=== PATIENT | male | born 1960 | race Caucasian/White ===

== ENCOUNTER 2024-07-11 14:26 | Inpatient (IN) | payer MEDICARE, OTHER, SELFPAY ==
--- NOTE | ~2024-07-11 | CT_ITS ---
EXAMINATION: CTA chest abdomen pelvis DATE: 07/11/2024 17:35 SERVICE COUNSELOR INDICATION: Pain across shoulders and down arms. Aortic dissection suspected clinically. TECHNIQUE: Computed tomographic angiography (CTA) of the chest was performed, along with multiple con tiguous axial images of the abdomen and pelvis with 100 mL Omnipaque-350 intravenous contrast. The do se-length product was 951.04 mGy-cm. Maximum intensity projection 3D-reconstructions of the aorta and other arteries were constructed by the technologist on a separate workstation. FINDINGS/OBSERVATIONS: PULMONARY ARTERIES: No filling defect is identified within the main or proximal pulmonary artery. The main pulmonary artery is not enlarged. THORACIC AORTA: No aneurysmal dilatation or dissection is present. The great vessels are intact LUNGS: The lungs are clear. MEDIASTINUM: No morphologically suspicious or pathologically enlarged lymph nodes are identified with in the mediastinum or bilateral axilla. BONES OF THE CHEST: No acute compression fracture. Bridging endplate osteophytes at multiple levels in the spine, consistent with diffuse idiopathic ske letal hyperostosis (DISH). HEART: The heart is of normal size, without pericardial effusion. LIVER: The liver enhances homogeneously without enlargement measuring 16 cm in longitudinal dimension. GALLBLADDER AND BILIARY SYSTEM: The gallbladder is only minimally distended, and otherwise unremarkable. PANCREAS: A 7 mm focus of decreased attenuation is identified within the proximal body of the pancrea s for which further characterization on this single phase study is limited. The remainder of the pancreas otherwise enhances homogeneously without ductal dilatation. SPLEEN: The spleen enhances homogeneously and is not enlarged measuring 8 cm in longitudinal dimension. KIDNEYS: The bilateral kidneys enhance symmetrically without hydronephrosis or renal calculi. ADRENAL GLANDS: Unremarkable. GASTROINTESTINAL TRACT: Colonic diverticulosis without surrounding inflammatory change. APPENDIX: The air-filled appendix is of normal caliber (axial series, images 170 - 183). VASCULATURE: High-grade stenosis of the celiac trunk with poststenotic dilatation. The celiac trunk demonstrates conventional anatomy. The superior mesenteric artery is widely patent, as is the inferior mesenteric artery. LYMPH NODES: No pathologically enlarged or morphologically suspicious lymph nodes within the retroperitoneum or at the root of the mesentery. PELVIC STRUCTURES: The bladder is distended, and otherwise unremarkable. The prostate gland is not enlarged. BODY WALL AND MUSCULOSKELETAL: Significant degenerative disease within the lumbosacral spine, with bridging osteophyte formation, di sc space narrowing, endplate changes and vacuum phenomena. Facet arthropathy is also noted Ankylosis of the L5/S1 disc space is also present. IMPRESSION: No aortic dissection. No pulmonary embolus. 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 Indeterminate 7 mm focus of decreased attenuation within the proximal body of the pancreas for which nonemergent follow-up either contrast-enhanced CT or MRI with pancreatic mass protocol is recommended , unless this is a known finding. 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 Remaining mesente fritz vasculature is widely patent. Reviewed, dictated and finalized at location A. ICE COUNSELOR IMPRESSION: No aortic dissection. No pulmonary embolus. 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 Indeterminate 7 mm focus of decreased attenuation within the proximal body of t he pancreas for which nonemergent follow-up either contrast-enhanced CT or MRI with pancreatic mass protocol is recommended, unless this is a known finding. High-grade stenosis of the celiac trunk is identified with poststenotic dilatat ion. Remaining mesenteric vasculature is widely patent.
--- NOTE | 2024-07-11 14:31 | ECG_ITS ---
Test Date: 2024-07-11 14:54:04 Measurements Intervals [place] Rate: 78 P: 38 FL: 177 QRS: 0 QRSD: 94 T: 55 QT: 368 QTc: 419 Interpretive Statements SINUS RHYTHM BASELINE ARTIFACT- I, II, AVR, V4-V6 NORMAL ECG No previous ECG available for comparison Electronically Signed On 07-11-2024 15:01:33 TESTER OPERATOR by Murray Hoskins D.O.
--- OUTSIDE RECORDS SUMMARY | 2024-07-11 14:36 | XMS_ITS | Clinical Summary ---
Author Organization [facility] Address [address] [place] [address] Care Team Providers Care Engineering Design Manager Name Role Phone Wilfredo Pena MD Primary Care Provider [phone] Source Comments [facility],non-owned Affiliates and Associated Physician Practices is amultiple site organization consisting of ambulatory clinics and hospital sitesin [place], [place], [place] and [place]. This disclosure is being madepursuant to the Care Everywhere program and may not contain all information available regarding this patient. Last updated 18.[facility] Allergies No known active allergies Medications Be aware that medications may not be up to date on this document. Always verify current medications with the patient. No known medications Social History Tobacco Use Types Packs/Day Years Used Date Smoking Tobacco: Never Alcohol Use Standard Drinks/Week Comments No 0 (1 standard drink = 0.6 oz pur e alcohol) Sex and Gender Information Value Date Recorded Sex Assigned at Not on file Gender Identity Not on file Sexual Orientation Not on file Last Filed Vital Signs Vital Sign Reading Time Taken Comments Blood Pressure 109/56 05/06/2015 7:21 PM PACKAGER Pulse 66 05/06/2015 7:21 PM PACKAGER Temperature 36.6 ??C (97.8 ??F) 05/06/2015 7:21 PM CS T Respiratory Rate 16 05/06/2015 7:21 PM PACKAGER Oxygen Saturation 99% 05/06/2015 7:21 PM PACKAGER Inhaled Oxygen Concentration - - Weight 88.5 kg (195 lb) 05/06/2015 7:21 PM PACKAGER Height 170.2 cm (5' 7 ) 05/06/2015 7:21 PM PACKAGER Body Mass Index 30.54 05/06/2015 7:21 PM PACKAGER Plan of Treatment Health Maintenance Due Date Last Done Comments JUSTIN (AGES 45-75) - COL ON CA SCREENING 1958 COLON MONITORING 1958 COLONOSCOPY - COLON CA SCREENING 1958 CT COLONOGRAPHY - COLON CA SCREENING 1958 Colorectal Cancer Screening 1958 FIT - COLON CA SCREENING 1958 FLEX SIG - COLON CA SCREENING 1958 LIPID TESTING 1958 HEPATITIS C SCREENING 04/22/1976 DTAP/TDAP/TD VACCINES (1 - Tdap) 1977 PNEUMOCOCCAL VACCINE 50+ (1 of 1 - PCV) 2008 ZOSTER VACCINE (1 of 2) 2008 COVID-19 VACCINE (1 - 2023-2 5 season) 2024 INFLUENZA VACCINE (#1) 2024 DEPRESSION SCREENING 06/07/2024 Respiratory Syncytial Virus (RSV) Vaccine Pt: or over 60 yrs (1 - 1-dose 75+ series) 2033 HEPATITIS B VACCINE Aged Out No longe r eligible based on patient's age to complete this topic HIB VACCINE Aged Out No longer eligi ble based on patient's age to complete this topic HPV VACCINE Aged Out No longer eligi ble based on patient's age to complete this topic MENINGOCOCCAL (Group B) VACCINE Aged Out No longer eligible based on patient's age to complete this topic MENINGOCOCCAL VACCINE Aged Out No katalina valencia eligible based on patient's age to complete this topic Care Teams Engineering Design Manager Relationship Specialty Start Date End Date Wilfredo Pena MD [address] [address] PCP - General Internal Medicine 05/06/15
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
--- OUTSIDE RECORDS SUMMARY | 2024-07-11 14:36 | XMS_ITS | Referral Summary ---
Author Organization [facility] Address [address] [place] [address] Care Team Providers Care Farm Equipment Service Technician Name Role Phone Wilfredo Pena MD Primary Care Provider [phone] Source Comments [facility],non-owned Affiliates and Associated Physician Practices is amultiple site organization consisting of ambulatory clinics and hospital sitesin [place], [place], [place] and [place]. This disclosure is being madepursuant to the Care Everywhere program and may not contain all information available regarding this patient. Last updated 18.[facility] Allergies No known active allergies Medications Be [...] Comments Blood Pressure 109/56 05/06/2015 7:21 PM KNUCKLE STRAP SEWER Pulse 66 05/06/2015 7:21 PM KNUCKLE STRAP SEWER Temperature 36.6 ??C (97.8 ??F) 05/06/2015 7:21 PM CS T Respiratory Rate 16 05/06/2015 7:21 PM KNUCKLE STRAP SEWER Oxygen Saturation 99% 05/06/2015 7:21 PM KNUCKLE STRAP SEWER Inhaled Oxygen Concentration - - Weight 88.5 kg (195 lb) 05/06/2015 7:21 PM KNUCKLE STRAP SEWER Height 170.2 cm (5' 7 ) 05/06/2015 7:21 PM KNUCKLE STRAP SEWER Body Mass Index 30.54 05/06/2015 7:21 PM KNUCKLE STRAP SEWER Plan of Treatment Not on file Care Teams Farm Equipment Service Technician Relationship Specialty Start Date End Date Wilfredo Pena MD [address] [place] [address] [address] [place] [address] PCP - General Internal Medicine 05/06/15
--- OUTSIDE RECORDS SUMMARY | 2024-07-11 14:36 | XMS_ITS | CONTINUITY OF CARE DOCUMENT ---
Author Name sophia cortes Address Unknown Organization [facility] Address [address] [place] [address] Phone [phone] Care Team Providers Care Scrap Separator Name Role Phone sophia cortes Unavailable Unavailable
--- OUTSIDE RECORDS SUMMARY | 2024-07-11 14:36 | XMS_ITS | Clinical Summary ---
Author Organization [employer] [id number] Address [address] [place] [address] Care Team Providers Care Nanotechnology Engineering Technician Name Role Phone Wilfrdeo Pena MD Primary Care Provider [phone] Allergies No known active allergies Medications ibuprofen (MOTRIN) 200 mg tablet Take 200 mg by mouth every 6 hours as needed for Pain, Mild. Active chlorzoxazone (PARAFON FORTE) 500 mg tablet Take 1 Tablet (500 mg) by mouth 4 times daily as needed for Spasm. 30 Tablet 07/07/2018 10:56 AM HEAD OF PRECISION TARGETING 07/07/2018 Active traMADol (ULTRAM) 50 mg tablet Take 1 Tablet (50 mg) by mouth every 6 hours as needed for Pain. 30 Tablet 07/07/2018 10:56 AM HEAD OF PRECISION TARGETING 07/07/2018 Active Active Problems Problem Noted Date Diagnosed Date Lumbar stenosis with neurogenic claudication 05/2018 Family History Medical History Relation Name Comments Cancer Father COPD Mother Healthy Sister Relation Name Status Comments Father Mother Sister Alive Social History Tobacco Use Types Packs/Day Years Used Date Smoking Tobacco: Never Smokeless Tobacco: Never Alcohol Use Standard Drinks/Week Comments No 0 (1 standard drink = 0.6 oz pur e alcohol) Sex and Gender Information Value Date Recorded Sex Assigned at Not on file Legal Sex Male 12:00 AM CDT Gender Identity Not on file Sexual Orientation Not on file Last Filed Vital Signs Vital Sign Reading Time Taken Comments Blood Pressure 155/88 07/07/2018 11:00 AM HEAD OF PRECISION TARGETING Pulse 74 07/07/2018 11:00 AM HEAD OF PRECISION TARGETING Temperature 36.8 ??C (98.2 ??F) 07/07/2018 1 0:22 AM HEAD OF PRECISION TARGETING Respiratory Rate 18 07/07/2018 11:0 0 AM HEAD OF PRECISION TARGETING Oxygen Saturation 100% 07/07/2018 11: 00 AM HEAD OF PRECISION TARGETING Inhaled Oxygen Concentration - - Weight 101.7 kg (224 lb 1.9 oz) 07/07/2018 6:15 AM HEAD OF PRECISION TARGETING Height 172.7 cm (5' 8 ) 07/05/2018 10:3 7 AM HEAD OF PRECISION TARGETING Body Mass Index 34.08 07/05/2018 10:37 AM HEAD OF PRECISION TARGETING Plan of Treatment Health Maintenance Due Date Last Done Comments DTAP/TDAP/TD VACCINES (1 - Tdap) 1977 COLORECTAL SCREENING 2003 Colorectal Cancer Screening 2003 FIT-DNA Q 3 years 2003 FIT/FOBT Q 1 year 2003 Flex Sig/CT Colonography Q 5 years 2003 PNEUMOCOCCAL VACCINE 65+ YEARS (1 of 1 - PCV) 04/27/20 08 ZOSTER VACCINE (1 of 2) 2008 INFLUENZA VACCINE (#1) 2024 RSV VACCINE (60+ or ) (1 - 1-dose 75+ series) 2033 Insurance [employer] BLUE ACCESS/TRUE BLUE PPO RX [employer] Express RX [employer] Express Care Teams Nanotechnology Engineering Technician Relationship Specialty Start Date End Date Wilfredo Pena MD [address] [place] [address] PCP - General Internal Medicine 03/29/18
[2024-07-11 15:21] LABS: Basophils Absolute Auto 0.1 K/mm3 (0.0-0.1); Basophils Percent Auto 0.5 % (0.2-1.2); Eosinophils Absolute Auto 0.2 K/mm3 (0-0.3); Eosinophils Percent Auto 2.2 % (0-4.4); Hematocrit 47.7 % (42.0-52.0); Hemoglobin 16.6 g/dL (14.0-18.0); Immature Granulocyte Absolute 0.03 K/mm3 (0.00-0.031); Immature Granulocyte Percent A 0.3 % (0-0.5); Lymphocytes Absolute Auto 1.88 K/mm3 (0.9-3.2); Lymphocytes Percent Auto 20.3 % (18.3-44.2); Mean Corpuscular HGB Conc 34.8 g/dl (32-36); Mean Corpuscular Hemoglobin 32.9 pg (26-34); Mean Corpuscular Volume 94.5 fl (80-100); Mean Platelet Volume 10.2 fl (7.4-10.4); Monocytes Absolute Auto 0.6 K/mm3 (0.1-0.6); Monocytes Percent Auto 6.4 % (2.6-8.5); Neutrophils Absolute Auto 6.5 K/mm3 (1.3-6.7); Neutrophils Percent Auto 70.3 % (45.5-73.1); Platelet Count Result 241 k/mm3 (150-375); Red Blood Count 5.05 M/mm3 (4.6-6.20); Red Cell Distribution Width 12.3 % (11.5-14.5); White Blood Count 9.3 K/mm3 (4.5-10.0)
--- NOTE | 2024-07-11 15:34 | ED_ITS ---
HPI - Back Pain/Injury General Chief Complaint: Extremity Problem,Nontraumatic <Rebecca Rollins APRN - Last Filed: 07/11/24 15:36> Stated Complaint: Pain across shoulders-radiating down both arms <Rebecca Rollins APRN - Last Filed: 07/11/24 15:36> Time Seen by Provider: 07/11/24 15:15 <Rebecca Rollins APRN - Last Filed: 07/11/24 15:36> Focused HPI: Patient is a 64-year-old male who presents to the ER with bilateral shoulder pain that radiates down both of his arms. He reports the pain worsens when he is laying down. Patient reports the pain started abruptly yesterday evening. He describes it as a ?dull ache but it is not muscular. Patient reports he had left arm numbness and tingling once and it was related to his statin use, he no longer takes statin. He reports he has a history of high blood pressure, diabetes, high cholesterol. Patient denies any chest pain, shortness of breath, wheezing, abdominal pain. GENERAL: Well-appearing, well-nourished, and in no acute distress. HEAD: Normocephalic, atraumatic. CHEST: Clear to auscultation. ?No respiratory distress. HEART: Regular rate and rhythm.? NEURO: ?Alert and oriented x3. Patient screened in triage and initial orders placed.? ?Additional care and disposition to be based upon?diagnostic testing and treatment. <Rebecca Rollins APRN - Last Filed: 07/11/24 15:36> History of Present Illness HPI Narrative: I agree with the HPI as above. In addition, the patient had a normal stress test one week ago, done at the NH, for which he has a report. He had excellent imaging with no changes concerning for ischemia. <Jairo Richardson MD - Last Filed: 07/11/24 23:00> Related Data Allergies/Adverse Reactions: Allergies Allergy/AdvReac Type Severity Reaction Status Date / Time No Known Allergies Allergy Mild Verified 07/11/24 14:28 <Rebecca Rollins APRN - Last Filed: 07/11/24 15:36> Review of Systems 2 Review of Systems: All systems reviewed & are unremarkable except as noted in HPI and below <Jairo Richardson MD - Last Filed: 07/11/24 23:00> PMFSH Family History Family History: Family History (Updated 07/11/24 @ 21:34 by Rodriguez Vera RN) Mother Emphysema lung Grandparent Cerebrovascular accident Father Cancer <Rebecca Rollins, HOME MAKER - Last Filed: 07/11/24 15:36> Social History Social History: Social History Smoking status: Never smoker Alcohol intake: never Substance use: never Do You Feel Safe in your Home?: Yes Lack of Transportation: No Lack of Food: Never True Current Housing: I Have Housing Concerned About Future Housing: No Difficulty Paying Gas/Electric Bills: No Difficulty Paying for Meds: No Currently Unemployed: No Education: Associate Degree Difficulty w/ Childcare or Family Care: No Spiritual care concerns: No <Rebecca Rollins, HOME MAKER - Last Filed: 07/11/24 15:36> Exam 2 Narrative: GENERAL: Well-developed, well-nourished, and in no acute distress. HEAD: Normocephalic, atraumatic. EYES: PERRLA and EOMI. NECK: Supple. No JVD CHEST: Clear to auscultation. No respiratory distress. No wheezes rales or rhonchi HEART: Regular rate and rhythm. No murmur heard. Normal peripheral pulses. ABDOMEN: Soft, nontender, nondistended, normal active bowel sounds. EXTREMITIES: Normal range of motion. No edema. SKIN: Warm, dry, no rash. NEURO: Alert and oriented x3. No focal deficit. Moving all 4 limbs spontaneously PSYCH: Normal mood and affect. <Jairo Richardson MD - Last Filed: 07/11/24 23:00> Course Course Emergency Course: 18:44 - EKG not concerning for ischemia. Initial troponin elevated at 1.18. CBC within normal limits. Chemistries demonstrate mildly elevated calcium of 10.6 but is otherwise unremarkable. Patient tested negative for COVID, RSV and influenza. The patient presents evidence of a recent unremarkable exercise stress test. For this reason, I obtained a CT angiogram to rule out dissection. No dissection was seen. Will start patient on heparin. I discussed the patient with banking center manager, Dr. Canseco. who agrees to consult. I discussed the patient with hospitalist, ANT Castrejon who accepts admission. <Jairo Richardson MD - Last Filed: 07/11/24 23:00> Vital Signs Vital signs: Vital Signs Temperature 98.0 F 07/11/24 15:38 Pulse Rate 77 07/11/24 15:38 Respiratory Rate 18 07/11/24 15:38 Blood Pressure 145/81 H 07/11/24 15:38 Oxygen Delivery Room Air 07/11/24 15:38 Temperature 97.4 F L 07/11/24 21:25 Pulse Rate 76 07/11/24 22:00 Respiratory Rate 15 07/11/24 21:25 Blood Pressure 144/78 H 07/11/24 21:25 Pulse Oximetry 100 07/11/24 21:25 Oxygen Delivery Room Air 07/11/24 16:43 <Rebecca Rollins, HOME MAKER - Last Filed: 07/11/24 15:36> Vital Signs Temperature 98.0 F 07/11/24 15:38 Pulse Rate 77 07/11/24 15:38 Respiratory Rate 18 07/11/24 15:38 Blood Pressure 145/81 H 07/11/24 15:38 Oxygen Delivery Room Air 07/11/24 15:38 Temperature 97.4 F L 07/11/24 21:25 Pulse Rate 76 07/11/24 22:00 Respiratory Rate 15 07/11/24 21:25 Blood Pressure 144/78 H 07/11/24 21:25 Pulse Oximetry 100 07/11/24 21:25 Oxygen Delivery Room Air 07/11/24 16:43 <Jairo Richardson MD - Last Filed: 07/11/24 23:00> MDM - Back Pain/Injury MDM Narrative Medical decision making narrative: Plan: Labs, imaging, EKG, troponin, pain control, reassess <Jairo Richardson MD - Last Filed: 07/11/24 23:00> Differential Diagnosis Differential diagnosis: Likely other ( ACS, dissection, pleurisy, metabolic abnormality, pneumonia, other) <Jairo Richardson MD - Last Filed: 07/11/24 23:00> Lab Data Result diagrams: 07/11/24 15:02 07/11/24 15:02 <Rebecca Rollins APRN - Last Filed: 07/11/24 15:36> Labs: Lab Results 07/11/24 07/11/24 07/11/24 Range/Units 15:02 15:20 18:18 WBC 9.3 (4.5-10.0) K/mm3 RBC 5.05 (4.6-6.20) M/mm3 Hgb 16.6 (14.0-18.0) g/dL Hct 47.7 (42.0-52.0) % MCV 94.5 (80-100) fl MCH 32.9 (26-34) pg MCHC 34.8 (32-36) g/dl RDW 12.3 (11.5-14.5) % Plt Count 241 (150-375) k/mm3 MPV 10.2 (7.4-10.4) fl Immature Gran % (Auto) 0.3 (0-0.5) % Neut % (Auto) 70.3 (45.5-73.1) % Lymph % (Auto) 20.3 (18.3-44.2) % [place] % (Auto) 6.4 (2.6-8.5) % Eos % (Auto) 2.2 (0-4.4) % Baso % (Auto) 0.5 (0.2-1.2) % Lymph # (Auto) 1.88 (0.9-3.2) K/mm3 [place] # (Auto) 0.6 (0.1-0.6) K/mm3 Eos # (Auto) 0.2 (0-0.3) K/mm3 Baso # (Auto) 0.1 (0.0-0.1) K/mm3 Abs Immat Gran (auto) 0.03 (0.00-0.031) K/mm3 Absolute Neuts (auto) 6.5 (1.3-6.7) K/mm3 Absolute Nucleated RBC 0.000 (0.0-0.012) K/mm3 Nucleated RBC % 0.0 (0.0-0.2) % Sodium 137 (137-145) mmol/L Potassium 3.7 (3.4-5.0) mmol/L Chloride 100 (98-107) mmol/L Carbon Dioxide 21 L (22-30) mmol/L Anion Gap 16 H (4-12) mmol/L BUN 18 (9-20) mg/dL Creatinine 0.87 (0.7-1.3) mg/dL Estim Creat Clear Calc 76 ml/min Estimated GFR > 60 (59 - ) Glucose 139 H (65-110) mg/dL Calcium 10.6 H (8.4-10.2) mg/dL Total Bilirubin 0.7 (0.2-1.3) mg/dL AST 34 (17-59) U/L ALT 35 (6-50) U/L Alkaline Phosphatase 69 (38-126) U/L Troponin I 1.180 H* 2.460 H* D (0.000-0.034) ng/mL Total Protein 7.0 (6.3-8.2) g/dL Albumin 4.5 (3.5-5.1) g/dL Lipase 51 (23-300) U/L Influenza A (RT-PCR) Negative (Negative) Influenza B (RT-PCR) Negative (Negative) RSV (RT-PCR) Negative (Negative) SARS-CoV-2 RNA (RT-PCR) Negative (Negative) <Rebecca Rollins, HOME MAKER - Last Filed: 07/11/24 15:36> Lab Results 07/11/24 07/11/24 07/11/24 Range/Units 15:02 15:20 18:18 WBC 9.3 (4.5-10.0) K/mm3 RBC 5.05 (4.6-6.20) M/mm3 Hgb 16.6 (14.0-18.0) g/dL Hct 47.7 (42.0-52.0) % MCV 94.5 (80-100) fl MCH 32.9 (26-34) pg MCHC 34.8 (32-36) g/dl RDW 12.3 (11.5-14.5) % Plt Count 241 (150-375) k/mm3 MPV 10.2 (7.4-10.4) fl Immature Gran % (Auto) 0.3 (0-0.5) % Neut % (Auto) 70.3 (45.5-73.1) % Lymph % (Auto) 20.3 (18.3-44.2) % [place] % (Auto) 6.4 (2.6-8.5) % Eos % (Auto) 2.2 (0-4.4) % Baso % (Auto) 0.5 (0.2-1.2) % Lymph # (Auto) 1.88 (0.9-3.2) K/mm3 [place] # (Auto) 0.6 (0.1-0.6) K/mm3 Eos # (Auto) 0.2 (0-0.3) K/mm3 Baso # (Auto) 0.1 (0.0-0.1) K/mm3 Abs Immat Gran (auto) 0.03 (0.00-0.031) K/mm3 Absolute Neuts (auto) 6.5 (1.3-6.7) K/mm3 Absolute Nucleated RBC 0.000 (0.0-0.012) K/mm3 Nucleated RBC % 0.0 (0.0-0.2) % Sodium 137 (137-145) mmol/L Potassium 3.7 (3.4-5.0) mmol/L Chloride 100 (98-107) mmol/L Carbon Dioxide 21 L (22-30) mmol/L Anion Gap 16 H (4-12) mmol/L BUN 18 (9-20) mg/dL Creatinine 0.87 (0.7-1.3) mg/dL Estim Creat Clear Calc 76 ml/min Estimated GFR > 60 (59 - ) Glucose 139 H (65-110) mg/dL Calcium 10.6 H (8.4-10.2) mg/dL Total Bilirubin 0.7 (0.2-1.3) mg/dL AST 34 (17-59) U/L ALT 35 (6-50) U/L Alkaline Phosphatase 69 (38-126) U/L Troponin I 1.180 H* 2.460 H* D (0.000-0.034) ng/mL Total Protein 7.0 (6.3-8.2) g/dL Albumin 4.5 (3.5-5.1) g/dL Lipase 51 (23-300) U/L Influenza A (RT-PCR) Negative (Negative) Influenza B (RT-PCR) Negative (Negative) RSV (RT-PCR) Negative (Negative) SARS-CoV-2 RNA (RT-PCR) Negative (Negative) <Jairo Richardson MD - Last Filed: 07/11/24 23:00> ECG Data EKG #1: Attestation: I personally reviewed and interpreted this ECG as follows: <Jairo Richardson MD - Last Filed: 07/11/24 23:00> ECG completion date: 07/11/24 <Jairo Richardson MD - Last Filed: 07/11/24 23:00> ECG completion time: 14:54 <Jairo Richardson MD - Last Filed: 07/11/24 23:00> Prior ECG tracings: not available for review <Jairo Richardson MD - Last Filed: 07/11/24 23:00> Interpretation: sinus rhythm, rate 78, normal axis, no ST segment elevations or T- wave inversions concerning for ischemia, normal intervals with QTC of 419. < Jairo Richardson MD - Last Filed: 07/11/24 23:00> EKG #2: Attestation: I personally reviewed and interpreted this ECG as follows: <Jairo Richardson MD - Last Filed: 07/11/24 23:00> ECG completion date: 07/11/24 <Jairo Richardson MD - Last Filed: 07/11/24 23:00> ECG completion time: 18:37 <Jairo Richardson MD - Last Filed: 07/11/24 23:00> Prior ECG tracings: available for review <Jairo Richardson MD - Last Filed: 07/11/24 23:00> Interpretation: Sinus rhythm, rate 75, normal axis, no ST segment elevations or T- wave inversions concerning for ischemia, normal intervals with QTC of 415. No significant change compared to EKG done at 14:54. <Jairo Richardson MD - Last Filed: 07/11/24 23:00> Critical Care Time Critical Care Time Critical Care Time: Yes <Jairo Richardson MD - Last Filed: 07/11/24 23:00> Total Critical Care Time: 35 <Jairo Richardson MD - Last Filed: 07/11/24 23:00> Discharge Plan Discharge Clinical Impression: Non-ST elevation [place] (NSTEMI) Chest pain Qualifiers: Chest pain type: unspecified Qualified Code(s): R07.9 - Chest pain, unspecified <Rebecca Rollins, CURT - Last Filed: 07/11/24 15:36> Patient Disposition: Still a Patient <Rebecca Rollins APRN - Last Filed: 07/11/24 15:36> Condition: Serious <Rebecca Rollins APRN - Last Filed: 07/11/24 15:36> Time of Disposition: 18:42 <Rebecca Rollins APRN - Last Filed: 07/11/24 15:36> 18:42 <Jairo Richardson MD - Last Filed: 07/11/24 23:00>
[2024-07-11 15:38] VITALS: BP 145/81; PULSE 77; RESP 18; TEMP 36.7
[2024-07-11 15:44] LABS: Albumin Level 4.5 g/dL (3.5-5.1); Alkaline Phosphatase 69 U/L (38-126)
[2024-07-11 15:45] LABS: Anion Gap 16 mmol/L (4-12); Aspartate Amino Transferase 34 U/L (17-59); Bilirubin,Total 0.7 mg/dL (0.2-1.3); Blood Urea Nitrogen 18 mg/dL (9-20); Calcium 10.6 mg/dL (8.4-10.2); Carbon Dioxide 21 mmol/L (22-30); Chloride 100 mmol/L (98-107); Estimated CRCL calculation 76 ml/min; Estimated Glomerular Filt Rate > 60; Glucose 139 mg/dL (65-110); Lipase 51 U/L (23-300); Potassium 3.7 mmol/L (3.4-5.0); Sodium 137 mmol/L (137-145)
[2024-07-11 16:02] LABS: Influenza A QL RT-PCR Negative (Negative); Influenza B QL RT-PCR Negative (Negative); RSV RNA, RT-PCR Negative (Negative); SARS-CoV-2 RNA PCR Negative (Negative)
[2024-07-11 16:02] LABS: Alanine Aminotransferase 35 U/L (6-50)
[2024-07-11 16:43] VITALS: BP 146/83; PULSE 76; RESP 16; O2SAT 96
--- NOTE | 2024-07-11 17:56 | ECG_ITS ---
Test Date: 2024-07-11 18:37:08 Measurements Intervals [place] Rate: 75 P: 30 ND: 174 QRS: 0 QRSD: 105 T: 64 QT: 369 QTc: 415 Interpretive Statements SINUS RHYTHM NORMAL ECG Compared to ECG 07/11/2024 14:54:04 No significant changes Electronically Signed On 07-11-2024 18:38:07 HAM PUMPER by Murray Hoskins D.O.
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
--- OUTSIDE RECORDS SUMMARY | 2024-07-11 18:02 | XMS_ITS | Clinical Summary ---
Author Organization [facility] Address [address] [place] [address] Care Team Providers Care Crosscutter Rolled Glass Name Role Phone Wilfredo Pena MD Primary Care Provider [phone] Source Comments [facility] [employer],non-owned Affiliates and Associated Physician Practices is amultiple site organization consisting of ambulatory clinics and hospital sitesin [place], [place] and [place]. This disclosure is being madepursuant to the Care Everywhere program and may not contain all information available regarding this patient. Last updated 18.[facility] [employer] Allergies No known active allergies Medications Be [...] Comments Blood Pressure 109/56 05/06/2015 7:21 PM PERSONNEL GENERALIST MANAGER Pulse 66 05/06/2015 7:21 PM PERSONNEL GENERALIST MANAGER Temperature 36.6 ??C (97.8 ??F) 05/06/2015 7:21 PM CS T Respiratory Rate 16 05/06/2015 7:21 PM PERSONNEL GENERALIST MANAGER Oxygen Saturation 99% 05/06/2015 7:21 PM PERSONNEL GENERALIST MANAGER Inhaled Oxygen Concentration - - Weight 88.5 kg (195 lb) 05/06/2015 7:21 PM PERSONNEL GENERALIST MANAGER Height 170.2 cm (5' 7 ) 05/06/2015 7:21 PM PERSONNEL GENERALIST MANAGER Body Mass Index 30.54 05/06/2015 7:21 PM PERSONNEL GENERALIST MANAGER Plan of Treatment Health Maintenance Due Date [...] age to complete this topic Care Teams Crosscutter Rolled Glass Relationship Specialty Start Date End Date Wilfredo Pena MD [address] [address] PCP - General Internal Medicine 05/06/15
--- OUTSIDE RECORDS SUMMARY | 2024-07-11 18:02 | XMS_ITS | Clinical Summary ---
Author Organization [employer] [address] [facility] Address [address] [place] [address] Care Team Providers Care Bottom Stainer Name Role Phone Wilfredo Pena MD Primary Care Provider [phone] Allergies No known active allergies Medications ibuprofen (MOTRIN) 200 mg tablet Take 200 mg by mouth every 6 hours as needed for Pain, Mild. Active chlorzoxazone (PARAFON FORTE) 500 mg tablet Take 1 Tablet (500 mg) by mouth 4 times daily as needed for Spasm. 30 Tablet 07/07/2018 10:56 AM ARCHITECTURAL INSPECTOR 07/07/2018 Active traMADol (ULTRAM) 50 mg tablet Take 1 Tablet (50 mg) by mouth every 6 hours as needed for Pain. 30 Tablet 07/07/2018 10:56 AM ARCHITECTURAL INSPECTOR 07/07/2018 Active Active Problems Problem Noted Date [...] Comments Blood Pressure 155/88 07/07/2018 11:00 AM ARCHITECTURAL INSPECTOR Pulse 74 07/07/2018 11:00 AM ARCHITECTURAL INSPECTOR Temperature 36.8 ??C (98.2 ??F) 07/07/2018 1 0:22 AM ARCHITECTURAL INSPECTOR Respiratory Rate 18 07/07/2018 11:0 0 AM ARCHITECTURAL INSPECTOR Oxygen Saturation 100% 07/07/2018 11: 00 AM ARCHITECTURAL INSPECTOR Inhaled Oxygen Concentration - - Weight 101.7 kg (224 lb 1.9 oz) 07/07/2018 6:15 AM ARCHITECTURAL INSPECTOR Height 172.7 cm (5' 8 ) 07/05/2018 10:3 7 AM ARCHITECTURAL INSPECTOR Body Mass Index 34.08 07/05/2018 10:37 AM ARCHITECTURAL INSPECTOR Plan of Treatment Health Maintenance Due Date [...] RX EXPRESS [employer] Express [employer] Member Subscriber [facility] Name:Lyndon Campa Relation to Subscriber:Self Name:Lyndon Campa Subscriber ID:Not on file Payer ID:Not on file Type:RX Express Care Teams Bottom Stainer Relationship Specialty Start Date End Date Wilfredo Pena MD [address] [place] [address] PCP - General Internal Medicine 03/29/18
--- OUTSIDE RECORDS SUMMARY | 2024-07-11 18:02 | XMS_ITS | Referral Summary ---
Author Organization [facility] [employer] Address [address] [place] [address] Care Team Providers Care Sandwich Maker Name Role Phone Wilfredo Pena MD Primary Care Provider [phone] Source Comments [facility] [employer],non-owned Affiliates and Associated Physician Practices is amultiple site organization consisting of ambulatory clinics and hospital sitesin [place], [place], [place] and [place]. This disclosure is being madepursuant to the Care Everywhere program and may not contain all information available regarding this patient. Last updated 18.[facility] [employer] Allergies No known active allergies Medications Be [...] Comments Blood Pressure 109/56 05/06/2015 7:21 PM ACCOUNTS PAYABLE LEAD Pulse 66 05/06/2015 7:21 PM ACCOUNTS PAYABLE LEAD Temperature 36.6 ??C (97.8 ??F) 05/06/2015 7:21 PM CS T Respiratory Rate 16 05/06/2015 7:21 PM ACCOUNTS PAYABLE LEAD Oxygen Saturation 99% 05/06/2015 7:21 PM ACCOUNTS PAYABLE LEAD Inhaled Oxygen Concentration - - Weight 88.5 kg (195 lb) 05/06/2015 7:21 PM ACCOUNTS PAYABLE LEAD Height 170.2 cm (5' 7 ) 05/06/2015 7:21 PM ACCOUNTS PAYABLE LEAD Body Mass Index 30.54 05/06/2015 7:21 PM ACCOUNTS PAYABLE LEAD Plan of Treatment Not on file Care Teams Sandwich Maker Relationship Specialty Start Date End Date Wilfredo Pena MD [address] [place] [address] [address] [place] [address] PCP - General Internal Medicine 05/06/15
[2024-07-11] MEDS: NITROGLYCERIN SL 0.4 MG TABLET SUBLINGUAL ×2 (18:39→18:45)
[2024-07-11 18:41] VITALS: BP 145/84; PULSE 79; RESP 16; O2SAT 94
[2024-07-11] MEDS: HEPARIN SODIUM 5,000 UNITS/ML VIAL 4000 UNITS IV PUSH ×2 (18:43→21:56)
[2024-07-11] MEDS: HEPARIN SOD/D5W 100 UNITS/ML 25,000 UNITS/250 ML BAG 10 UNITS IV CONT (18:45)
[2024-07-11 20:55] VITALS: BP 130/66; PULSE 74; RESP 15; O2SAT 94
--- NOTE | 2024-07-11 21:15 | ADMGEN ---
This patient, Lyndon Campa, was admitted to IMU Room 200-01. Patient/family oriented to hospital policies and general routines including ID bracelet, bed and alarms, visiting hours, pain management, procedures, bathroom and other care routines, personal items, smoking policy, room service/diet, and visiting hours. Information on how to activate the Rapid Response Team has been discussed. Patient/Family are encouraged to report perceived risks to care and to ask questions if they do not understand what they are told or what they should do.
[2024-07-11 21:19] VITALS: BMI 30.8
[2024-07-11 21:24] VITALS: BMI 30.8
[2024-07-11 21:25] VITALS: BP 144/78; PULSE 76; RESP 15; TEMP 36.3; O2SAT 100
[2024-07-11 21:41] LABS: Prothrombin Time 13.3 Seconds (11.1-14.7)
[2024-07-11 22:00] VITALS: PULSE 76
[2024-07-11] MEDS: ASPIRIN 325 MG TABLET PO (23:52)
--- NOTE | 2024-07-11 23:52 | P.HP_ITS ---
H&P: HPI History of Present Illness Date/Time: 07/11/24 23:52 Chief Complaint: Pain across his shoulders and down both arms Narrative: 64-year-old male with a past medical history of type 2 diabetes mellitus, esse ntial hypertension and hyperlipidemia intolerant to statin therapy who presented to the ER from urgent care due to pain across his shoulders that radiated down both arms that have been ongoing since the evening of the . He reported that the pain was deep aching with some waxing and waning in intensity but never resolved. He did not notice any exacerbation with activity but admits that he is not all that active at baseline. It was not associated by any chest pain shortness of breath, cough, congestion, diaphoresis or dyspnea on exertion. He had [place] test [place] 4 [place] ago that was negative for evidence of ischemia. He had a stress test as part of a preop evaluation for a trigger thumb preop of evaluation. The patient reported the pain lasted until he got to the ER and received sublingual nitroglycerin and was started on heparin drip. The patient did not receive aspirin in the ER. Review of Systems Review of Systems: 12 systems were reviewed with pertinent positives and negatives per HPI. Except as documented in the HPI, all other systems were reviewed and are negative. COUNTS INCLUDE 234 BEDS AT THE [facility] Past Medical History Medical History Hypertension associated with diabetes Hyperlipidemia associated with type 2 diabetes mellitus Chronically dry eyes Obstructive sleep apnea Mild treated with a dental device Lumbar radiculopathy, chronic Mixed hyperlipidemia Intolerant to statin therapy Essential hypertension Type 2 diabetes mellitus Surgical History Surgical History S/P cubital tunnel release Bilateral History of umbilical hernia repair History of bilateral inguinal hernia repair History of arthroscopy of both knees History of bilateral carpal tunnel release Hx of excision of lamina of lumbar vertebra for decompression of spinal cord X2 History of microdiscectomy History of cervical spinal arthrodesis Family History Family History Mother Emphysema lung Grandparent Cerebrovascular accident Father Cancer Social History Social History Social History: The patient lives with his of 42 years. 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 He is a lifelong nonsmoker and does not drink alcohol or use illicit substances. He and his raised 1 daughter and 1 son. He served in the [employer] for 4 years. He [place]. Code status full code Surrogate decision maker: Smoking status: Never smoker Alcohol intake: never Substance use: never Do You Feel Safe in your Home?: Yes Lack of Transportation: No Lack of Food: Never True Current Housing: I Have Housing Concerned About Future Housing: No Difficulty Paying Gas/Electric Bills: No Difficulty Paying for Meds: No Currently Unemployed: No Education: Associate Degree Difficulty w/ Childcare or Family Care: No Spiritual care concerns: No Meds Home Medications and Allergies Home Medications ?Medication ?Instructions ?Recorded ?Confirmed ?Type bupropion HCl 150 mg 24 hr tablet, 150 mg PO .q12 hr 07/12/24 07/12/24 History extended release (Wellbutrin XL) buspirone 10 mg tablet 10 mg PO TID 07/12/24 07/12/24 History carboxymethylcellulose 2 ea miscellaneous QID PRN dry 07/12/24 07/12/24 History eye(s) empagliflozin 5 mg-metformin 1,000 2 tablet PO ONCE 07/12/24 07/12/24 History mg tablet ipratropium bromide 21 mcg (0.03 2 spray intranasal TID PRN allergy 07/12/24 07/12/24 History %) nasal spray symptoms losartan 100 1 tablet PO DAILY 07/12/24 07/12/24 History mg-hydrochlorothiazide 12.5 mg tablet (Hyzaar) melatonin 5 mg capsule 5 mg PO HS PRN insomnia 07/12/24 07/12/24 History meloxicam 15 mg tablet 15 mg PO DAILY PRN arthritis 07/12/24 07/12/24 History rosuvastatin 10 mg tablet (Crestor) 5 mg PO DAILY 07/12/24 07/12/24 History semaglutide 1 mg/dose (4 mg/3 mL) 1 mg subcut WEEKLY 07/12/24 07/12/24 History subcutaneous pen injector sildenafil 100 mg tablet (Viagra) 100 mg PO DAILY PRN erectile 07/12/24 07/12/24 History dysfunction Allergies Allergy/AdvReac Type Severity Reaction Status Date / Time No Known Allergies Allergy Mild Verified 07/11/24 14:28 Vital Signs Vital Signs - 24 hr 07/11/24 15:38 07/11/24 16:43 07/11/24 18:41 Temperature 98.0 F Pulse Rate 77 76 79 Respiratory Rate 18 16 16 Blood Pressure 145/81 H 146/83 H 145/84 H Pulse Oximetry 96 94 Oxygen Delivery Room Air Room Air 07/11/24 20:55 07/11/24 21:25 07/11/24 22:00 Temperature 97.4 F L Pulse Rate 74 76 76 Respiratory Rate 15 15 Blood Pressure 130/66 144/78 H Pulse Oximetry 94 100 Oxygen Delivery Exam Narrative: Weight 80.8 kg BMI 30.7 Const: Other: Overweight, no acute distress, appears stated age HENMT: Other: Head is normocephalic atraumatic, crowded posterior oropharynx, no oral pharyngeal erythema, erythema and nodules to lower lid of the right eye without any purulence or drainage Eyes: Other: Pupils are equal and reactive, no scleral icterus, injected conjunctiva bilaterally but right greater than left Neck: Other: Large neck circumference, trachea midline, no lymphadenopathy Chest: Other: No reproducible tenderness to palpation Resp: Other: Clear to auscultation bilaterally, no increased work of breathing Cardio: Other: Regular rate, regular rhythm, 2+ bilateral radial pedal pulses GI: Other: Distended, nontender, soft, positive bowel sounds Skin: Other: No jaundice, no pallor Neuro: Other: Alert orient, speech is clear, no facial asymmetry Extrem: Other: No clubbing, cyanosis or edema moving all extremities equally Psych: Other: Appropriate mood and affect, pleasant and cooperative, judgment insight intact H&P: Results Labs Labs: Short CBC 07/11/24 Range/Units 15:02 WBC 9.3 (4.5-10.0) K/mm3 Hgb 16.6 (14.0-18.0) g/dL Hct 47.7 (42.0-52.0) % Plt Count 241 (150-375) k/mm3 BMP 07/11/24 15:02 Sodium 137 Potassium 3.7 Chloride 100 Carbon Dioxide 21 L BUN 18 Creatinine 0.87 Glucose 139 H Calcium 10.6 H Cardiac Enzymes 07/11/24 07/11/24 07/11/24 Range/Units 15:02 18:18 21:17 Troponin I 1.180 H* 2.460 H* D 3.040 H* D (0.000-0.034) ng/mL Liver Function 07/11/24 Range/Units 15:02 Total Bilirubin 0.7 (0.2-1.3) mg/dL AST 34 (17-59) U/L ALT 35 (6-50) U/L Alkaline Phosphatase 69 (38-126) U/L Albumin 4.5 (3.5-5.1) g/dL EKG: Measurements Intervals [place] Rate: 75 P: 30 HI: 174 QRS: 0 QRSD: 105 T: 64 QT: 369 QTc: 415 Interpretive Statements SINUS RHYTHM NORMAL ECG Compared to ECG 07/11/2024 14:54:04 No significant changes Impressions Chest/Abdomen/Pelvis CTA 07/11/24 17:35 IMPRESSION: No aortic dissection. No pulmonary embolus. 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 Indeterminate 7 mm focus of decreased attenuation within the proximal body of the pancreas for which nonemergent follow-up either contrast-enhanced CT or MRI with pancreatic mass protocol is recommended, unless this is a known finding. 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 Remaining mesenteric vasculature is widely patent. All imaging and EKGs personally reviewed and interpreted. And unless stated otherwise agree with radiologic and cardiology interpretation. Assessment and Plan Assessment and plan (1) Non-ST elevation [place] (NSTEMI): Code(s): I21.4 - Non-ST elevation (NSTEMI) myocardial infarction Status: Acute (2) Essential hypertension: Code(s): I10 - Essential (primary) hypertension Status: Acute (3) Type 2 diabetes mellitus: Qualifiers: Diabetes mellitus complication status: without complication Diabetes mellitus truck terminal manager insulin use: without truck terminal manager use Qualified Code(s): E11.9 - Type 2 diabetes mellitus without complications Code(s): E11.9 - Type 2 diabetes mellitus without complications Status: Acute (4) Mixed hyperlipidemia: Code(s): E78.2 - Mixed hyperlipidemia Status: Acute Plan Patient has had non STEMI. Cardiology has been consulted. Patient was started on heparin drip in the ER. Will check fasting lipid panel. The patient is reluctant to start statin therapy. I did discuss risks and benefits with the patient and informed him that I am sure that Cardiology would discuss this with him again. Patient will be made NPO at midnight for possible cardiac catheterization. Will give the patient has 3 on 25 mg aspirin and will start 81 mg aspirin daily. Will provide nitroglycerin as needed if recurrent chest pain. Morphine has also been ordered as needed. The patient reports that he is on lisinopril but he does not know the dose. We have not yet been able to get the patient's list of medications from the [facility]. Request for records has been sent. Patient does have type 2 diabetes mellitus. He reports he is on metformin but does not know which dose. He is on on Wed jar 0. He is currently euglycemic. Will monitor glucoses. The patient reports that his A1c is less than 7. He recently had an A1c within the last 3 months. Patient has been admitted as observation status. Quality VTE Prophylaxis VTE prophylaxis: pharmacologic ordered (Heparin GGT) Hospitalist MIPS Advance Care Plan I have confirmed that the patient's Advanced Care Plan is present, code status is documented, or surrogate decision maker is listed in patient medical record.: Yes Medication Reconciliation I have utilized all available resources to obtain, update and review the patients current medications (includes all prescriptions, OTC, herbals, cannabis, and nutritional supplements).: Yes
[2024-07-12] VITALS (31 sets, daily range): BP systolic 101–143; BP diastolic 63–91; PULSE 18–82; RESP 12–18; TEMP 36.4–36.8; O2SAT 95–100
--- NOTE | 2024-07-12 | ECHO_ITS ---
Patient Info Name: Lyndon Campa Age: 64 years : 1960 Gender: Male Ht: 67 in Wt: 196 lbs BSA: 2.08 m2 HR: 69 bpm BP: 121 / 66 mmHg Heart Rhythm: Sinus Rhythm Technical Quality: Good Exam Date: 07/12/2024 10:15 AM Exam Location: Echo Lab Exam Room: [facility] Patient Status: Inpatient Admit Date: 07/11/2024 Staff Ordering Physician: Misa Neville DO Pest Control Supervisor: Ruby Hull RDCS Attending Provider: Reina Neal MD Referring Physician: Kelin CRISOSTOMO; Exam Type: CA echo doppler color flow Study Info Indications - NSTEMI Complete two-dimensional, color flow and Doppler transthoracic echocardiogram is performed. Summary 1. Left ventricular chamber dimension is normal. 2. Left ventricular systolic function is normal, estimated at 55-60%. 3. There is mildly increased left ventricular wall thickness. 4. The left ventricular diastolic function is grade I diastolic dysfunction. 5. Right ventricular systolic function is normal. 6. There is mild aortic valve regurgitation. 7. There is mild mitral valve regurgitation. 8. There is mild tricuspid valve regurgitation. Left Ventricle Left ventricular chamber dimension is normal. Left ventricular systolic function is normal, estimated at 55-60%. There is mildly increased left ventricular wall thickness. The left ventricular diastolic function is grade I diastolic dysfunction. Right Ventricle Right ventricular chamber dimension is normal. Right ventricular systolic function is normal. Left Atria Left atrial chamber dimension is normal. Right Atria Right atrial chamber dimension is normal. Atrial Septum Intact interatrial septum visualized by color flow imaging. Aortic Valve The aortic valve is trileaflet. There is mild aortic valve sclerosis. There is no aortic valve stenosis. There is mild aortic valve regurgitation. Pulmonic Valve The pulmonic valve is not well visualized. There is trace pulmonic regurgitation. Mitral Valve There is mild mitral valve regurgitation. Tricuspid Valve There is mild tricuspid valve regurgitation. Pericardium/Pleural There is no pericardial effusion. Inferior Vena Cava Normal IVC size. Aorta The aortic root size at the sinus of Valsalva is normal. Left Ventricular Outflow Tract Name Value Normal LVOT 2D LVOT Diameter 2.1 cm LVOT Doppler LVOT Peak Gradient 5 mmHg LVOT Mean Gradient 3 mmHg LVOT VTI 23 cm LVOT VTI/AV VTI Ratio 0.8 LVOT Stroke Volume 80 ml LVOT CO 5.5 l/min LVOT CI 2.6 l/min/m2 Pulmonic Valve Name Value Normal PV Doppler PV Peak Gradient 3 mmHg PV Regurgitation Doppler ND Peak End Diastolic Velocity 57 cm/s Mitral Valve Name Value Normal MV Doppler MV Peak Gradient 5 mmHg MV Mean Gradient 1 mmHg MV Decel Tyrrell 490 cm/s2 MV PHT 51 ms MV Area (PHT) 4.4 cm2 4.0-5.0 MV Area (Cont Eq VTI) 3.6 cm2 MV Regurgitation Doppler MR Peak Gradient 147 mmHg MV Diastolic Function MV E Peak Velocity 85 cm/s MV A Peak Velocity 103 cm/s MV E/A 0.8 MV Decel Time 174 ms MV Annular TDI MV E/e' (Septal) 11.5 <=8.0 MV E/e' (Lateral) 10.0 <=8.0 MV E/e' (Average) 10.7 Tricuspid Valve Name Value Normal TV Regurgitation Doppler TR Peak Velocity 228 cm/s TR Peak Gradient 21 mmHg Aortic Valve Name Value Normal AV Doppler AV Peak Velocity 151 cm/s AV Peak Gradient 9 mmHg AV Mean Gradient 5 mmHg AV VTI 27 cm AV Area (Cont Eq VTI) 3.0 cm2 >=3.0 AV Area (Cont Eq Rylan) 2.6 cm2 AV Regurgitation 2D LVOT Area 3.5 cm2 AV Regurgitation Doppler AR Decel Time 3,361 ms AR Decel Tyrrell 134 cm/s2 AR PHT 975 ms Ventricles Name Value Normal LV Dimensions 2D/MM IVS Diastolic Thickness (2D) 0.8 cm 0.6-1.0 LVID Diastole (2D) 4.9 cm 4.2-5.8 LVID Diastole (MM) 5.3 cm 4.2-5.8 LVIW Diastolic Thickness (2D) 0.9 cm 0.6-1.0 LVID Systole (2D) 3.4 cm 2.5-4.0 LVID Systole (MM) 3.9 cm 2.5-4.0 LVOT Diameter 2.1 cm LV Mass (2D Cubed) 135.27 g 88.00-224.00 LV Mass Index (2D Cubed) 65 g/m2 49-115 Relative Wall Thickness (2D) 0.36 LV Fractional Shortening/Ejection Fraction 2D/MM LV Fractional Shortening (2D) 30 % 25-43 LV Fractional Shortening (MM) 28 % 25-43 LV EF (MM Teicholz) 54 % 52-72 LV EF (2D Teicholz) 57 % 52-72 LV Diastolic Volume (4C MOD) 138 ml LV EF (4C MOD) 58 % LV Diastolic Volume (2C MOD) 121 ml LV EF (2C MOD) 54 % LV Diastolic Volume (BP MOD) 132 ml 62-150 LV Diastolic Volume Index (BP MOD) 63 ml/m2 34-74 LV Systolic Volume (BP MOD) 58 ml 21-61 LV Systolic Volume Index (BP MOD) 28 ml/m2 11-31 LV EF (BP MOD) 56 % 52-72 LV Diastolic Length (4C) 8.9 cm LV Systolic Length (4C) 7.4 cm LV Stroke Volume (4C MOD) 80 ml Atria Name Value Normal LA Dimensions LA Volume (4C A-L) 48 ml RA Dimensions RA Area (4C) 17.0 cm2 <=18.0 Report Signatures
[2024-07-12 04:25] LABS: Basophils Percent Auto 0.5 % (0.2-1.2); Eosinophils Absolute Auto 0.3 K/mm3 (0-0.3); Eosinophils Percent Auto 3.2 % (0-4.4); Hematocrit 45.1 % (42.0-52.0); Hemoglobin 15.8 g/dL (14.0-18.0); Immature Granulocyte Absolute 0.02 K/mm3 (0.00-0.031); Immature Granulocyte Percent A 0.3 % (0-0.5); Lymphocytes Absolute Auto 1.98 K/mm3 (0.9-3.2); Lymphocytes Percent Auto 25.1 % (18.3-44.2); Mean Corpuscular Hemoglobin 33.1 pg (26-34); Mean Corpuscular Volume 94.5 fl (80-100); Mean Platelet Volume 9.8 fl (7.4-10.4); Monocytes Absolute Auto 0.7 K/mm3 (0.1-0.6); Monocytes Percent Auto 8.8 % (2.6-8.5); Neutrophils Absolute Auto 4.9 K/mm3 (1.3-6.7); Neutrophils Percent Auto 62.1 % (45.5-73.1); Platelet Count Result 190 k/mm3 (150-375); Red Blood Count 4.77 M/mm3 (4.6-6.20); Red Cell Distribution Width 12.3 % (11.5-14.5); White Blood Count 7.9 K/mm3 (4.5-10.0)
[2024-07-12 04:36] LABS: Anion Gap 11 mmol/L (4-12); Blood Urea Nitrogen 15 mg/dL (9-20); Calcium 9.3 mg/dL (8.4-10.2); Carbon Dioxide 24 mmol/L (22-30); Chloride 102 mmol/L (98-107); Cholesterol 172 mg/dL (0-200); Estimated CRCL calculation 82 ml/min; Estimated Glomerular Filt Rate > 60; Glucose 105 mg/dL (65-110); HDL Direct 37 mg/dL; Potassium 3.8 mmol/L (3.4-5.0); Sodium 137 mmol/L (137-145); Triglycerides 193 mg/dL (<150)
[2024-07-12 04:47] LABS: LDL Cholesterol Direct 111 mg/dL
--- NOTE | 2024-07-12 09:33 | P.CONCA_ITS ---
Assessment and Plan Assessment and plan (1) Non-ST elevation [place] (NSTEMI): Code(s): I21.4 - Non-ST elevation (NSTEMI) myocardial infarction Status: Acute Assessment and Plan: Symptoms are bit atypical and it is interesting that he had a negative stress test last week but regardless has back pain radiating down his arms an elevated troponin. This is consistent with a non ST elevation myocardial infarction. Aspirin 81 mg p.o. daily. Heparin drip per protocol. Resume rosuvastatin but at a higher dose 10 mg daily and monitor for symptoms. Will start losartan 25 mg daily. P.r.n. nitroglycerin. 2D echocardiogram Doppler is ordered and will be reviewed. Will keep him NPO for cardiac catheterization/coronary angiogram later on this afternoon. (2) Hyperlipidemia associated with type 2 diabetes mellitus: Code(s): E11.69 - Type 2 diabetes mellitus with other specified complication; E78.5 - Hyperlipidemia, unspecified Status: Acute Assessment and Plan: Start statin (3) Hypertension associated with diabetes: Code(s): E11.59 - Type 2 diabetes mellitus with other circulatory complications; I15.2 - Hypertension secondary to endocrine disorders Status: Acute Assessment and Plan: Resuming losartan and add to this regimen depending on results of angiogram (4) Pancreatic mass: Code(s): K86.89 - Other specified diseases of pancreas Status: Acute Assessment and Plan: He does have a pancreatic mass incidentally found on his CT scan yesterday. This does need further follow-up and evaluation as recommended and the CT scan report. History of Present Illness History of Present Illness Consult date/time: 07/12/24 09:33 Requesting physician: Jairo Richardson MD Consult reason: Other (NSTEMI) Reason For Visit: NSTEMI Narrative: Date of service 07/12/2024 Reason for consultation: Non-STEMI Requesting provider: Dr. Richardson History: Patient is a 64-year-old male who follows at the [place]. Recently had a stress test at the [place] which was normal. Stress test was performed because of an EKG was performed at the [place] prior to having a trigger finger surgery. EKG was thought to be abnormal. This led to a stress test which again the stress test was normal without infarction or ischemia and normal ejection fraction. Stress test was performed last week. He felt fine over the weekend and then Wednesday he was doing some painting. After his work, he started to developed some pain across his shoulders and down his arms. He states that it felt different than muscle ache pain following exercise are working. He took some meloxicam which did help. Took some Tylenol which also did not really help. He ended going to bed and woke up and still had some discomfort. Symptoms did not radiate into the chest. It stated in his shoulders and arms. No associated symptoms. He laid down and took a nap and still had some symptoms but then stood up yesterday afternoon and started to feel little bit better. He went to she notes but his symptoms recurred and decided to go to urgent care who then sent him to the emergency department. In the emergency department he was given nitroglycerin x2 as well as lab work. Troponins were initially elevated. EKG is unremarkable. He was started on heparin and the patient states that he started feel better and noticed that he was no longer having any pain whenever he stood up to go to the bathroom in the emergency department and has had no pain since. He denies any syncope, presyncope, paroxysmal nocturnal dyspnea, orthopnea, edema palpitations. Review of Systems 2 Review of Systems: All systems reviewed & are unremarkable except as noted in HPI and below Constitutional: Constitutional: Denies body ache(s) Eyes: Eyes: Denies blurry vision ENT: Reports Normal hearing present Cardiovascular: Cardiovascular: Denies chest pain and Denies pedal edema Respiratory: Respiratory: Denies hemoptysis Gastrointestinal: Gastrointestinal: Denies abdominal pain Genitourinary: Genitourinary: Denies hematuria Musculoskeletal: Musculoskeletal: Reports back pain Integumentary/Breasts: Skin/Breast: Denies dry skin Neurologic: Denies Abnormal speech present Psychiatric: Psychiatric: Denies anxiety Endocrine: Endocrine: Denies excessive sweating Hematologic/Lymphatic: Hematologic/Lymphatic: Denies easy bleeding Allergic/Immunologic: Allergic/Immunologic: Denies GI upset with certain foods PMFSH Past Medical History Medical History (Updated 07/12/24 @ 09:51 by Patel Canseco MD) Hypertension associated with diabetes Hyperlipidemia associated with type 2 diabetes mellitus Chronically dry eyes Obstructive sleep apnea Mild treated with a dental device Lumbar radiculopathy, chronic Mixed hyperlipidemia Intolerant to statin therapy Essential hypertension Type 2 diabetes mellitus Surgical History Surgical History (Updated 07/12/24 @ 09:40 by Misa Neville DO) S/P cubital tunnel release Bilateral History of umbilical hernia repair History of bilateral inguinal hernia repair History of arthroscopy of both knees History of bilateral carpal tunnel release Hx of excision of lamina of lumbar vertebra for decompression of spinal cord X2 History of microdiscectomy History of cervical spinal arthrodesis Family History Family History Mother Emphysema lung Grandparent Cerebrovascular accident Father Cancer Social History Social History (Updated 07/12/24 @ 09:35 by Misa Neville DO) Social History: The patient lives with his of 42 years. 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 He is a lifelong nonsmoker and does not drink alcohol or use illicit substances. He and his raised 1 daughter and 1 son. He served in the [employer] for 4 years. He receives his medical care at the [place]. Code status full code Surrogate decision maker: Smoking status: Never smoker Alcohol intake: never Substance use: never Do You Feel Safe in your Home?: Yes Lack of Transportation: No Lack of Food: Never True Current Housing: I Have Housing Concerned About Future Housing: No Difficulty Paying Gas/Electric Bills: No Difficulty Paying for Meds: No Currently Unemployed: No Education: Associate Degree Difficulty w/ Childcare or Family Care: No Spiritual care concerns: No Comments Home medications: Rosuvastatin 5 mg daily but had stopped Meds Home Medications and Allergies Home Medications ?Medication ?Instructions ?Recorded ?Confirmed ?Type bupropion HCl 150 mg 24 hr tablet, 150 mg PO .q12 hr 07/12/24 07/12/24 History extended release (Wellbutrin XL) buspirone 10 mg tablet 10 mg PO TID 07/12/24 07/12/24 History empagliflozin 5 mg-metformin 1,000 2 tablet PO ONCE 07/12/24 07/12/24 History mg tablet losartan 100 1 tablet PO DAILY 07/12/24 07/12/24 History mg-hydrochlorothiazide 12.5 mg tablet (Hyzaar) Allergies Allergy/AdvReac Type Severity Reaction Status Date / Time No Known Allergies Allergy Mild Verified 07/11/24 14:28 Vital Signs Vital Signs - 24 hr 07/11/24 15:38 07/11/24 16:43 07/11/24 18:41 Temperature 36.7 C Pulse Rate 77 76 79 Respiratory Rate 18 16 16 Blood Pressure 145/81 H 146/83 H 145/84 H Pulse Oximetry 96 94 Oxygen Delivery Room Air Room Air 07/11/24 20:55 07/11/24 21:25 07/11/24 22:00 Temperature 36.3 C L Pulse Rate 74 76 76 Respiratory Rate 15 15 Blood Pressure 130/66 144/78 H Pulse Oximetry 94 100 Oxygen Delivery 07/12/24 00:00 07/12/24 00:00 07/12/24 00:25 Temperature 36.4 C Pulse Rate 76 76 79 Respiratory Rate 15 15 Blood Pressure 133/79 Pulse Oximetry 100 100 Oxygen Delivery Room Air 07/12/24 02:00 07/12/24 04:00 07/12/24 04:00 Temperature Pulse Rate 67 65 65 Respiratory Rate 15 Blood Pressure Pulse Oximetry 100 Oxygen Delivery Room Air 07/12/24 04:35 07/12/24 06:00 07/12/24 08:00 Temperature 36.5 C 36.6 C Pulse Rate 69 69 72 Respiratory Rate 15 16 Blood Pressure 121/66 122/74 Pulse Oximetry 97 97 Oxygen Delivery Exam 2 Narrative: Awake alert oriented appears to be in no acute distress. Appears stated age Const: General: comfortable and no acute distress HENMT: Face/Nose/Sinus: Normal nares present Mouth: Yes moist mucous membranes Eyes: General: appearance normal, both eyes and all related structures S clera: sclerae normal Neck: Neck: supple and no JVD Chest: Other: No reproducible chest wall pain to palpation Resp: Effort & Inspection: normal respiratory effort Auscultation: clear to auscultation bilaterally Cardio: Rate: regular rate Rhythm: regular rhythm GI: Inspection: non-distended GI Palp: Yes Soft to palpation A uscultation: normal bowel sounds Skin: General skin exam: normal color Neuro: General: gait normal Speech: normal speech Extrem: General: normal to inspection Psych: Mental Status: mental status grossly normal Affect: normal affect Results Labs and Meds 07/12/24 04:20 07/12/24 04:20 Lab results: Cardiac Enzymes 07/11/24 07/11/24 07/11/24 Range/Units 15:02 18:18 21:17 AST 34 (17-59) U/L Troponin I 1.180 H* 2.460 H* D 3.040 H* D (0.000-0.034) ng/mL Coagulation 07/11/24 07/12/24 Range/Units 21:17 04:20 PT 13.3 (11.1-14.7) Seconds APTT 54.0 H 73.0 H (22.3-36.8) Seconds Lipids 07/12/24 Range/Units 04:20 Triglycerides 193 H (<150) mg/dL Cholesterol 172 (0-200) mg/dL CBC 07/11/24 07/12/24 Range/Units 15:02 04:20 WBC 9.3 7.9 (4.5-10.0) K/mm3 RBC 5.05 4.77 (4.6-6.20) M/mm3 Hgb 16.6 15.8 (14.0-18.0) g/dL Hct 47.7 45.1 (42.0-52.0) % Plt Count 241 190 (150-375) k/mm3 Lymph # (Auto) 1.88 1.98 (0.9-3.2) K/mm3 [place] # (Auto) 0.6 0.7 H (0.1-0.6) K/mm3 Eos # (Auto) 0.2 0.3 (0-0.3) K/mm3 Baso # (Auto) 0.1 0.0 (0.0-0.1) K/mm3 Comprehensive Metabolic Panel 07/11/24 07/12/24 Range/Units 15:02 04:20 Sodium 137 137 (137-145) mmol/L Potassium 3.7 3.8 (3.4-5.0) mmol/L Chloride 100 102 (98-107) mmol/L Carbon Dioxide 21 L 24 (22-30) mmol/L BUN 18 15 (9-20) mg/dL Creatinine 0.87 0.82 (0.7-1.3) mg/dL Glucose 139 H 105 (65-110) mg/dL Calcium 10.6 H 9.3 (8.4-10.2) mg/dL AST 34 (17-59) U/L ALT 35 (6-50) U/L Alkaline Phosphatase 69 (38-126) U/L Total Protein 7.0 (6.3-8.2) g/dL Albumin 4.5 (3.5-5.1) g/dL Intake and Output 07/11/24 07/12/24 07/12/24 23:59 07:59 15:59 Intake Total 31.8 488 Output Total 200 Balance 31.8 288 Intake: IV 31.8 88 Heparin Sod/D5w 100 Units/ml 25 31.8 88 ,000 units In 250 ml @ 1,300 UNITS/HR 13 mls/hr IV CONT . [id number] [facility] Rx#:[id number] Oral 400 Output: Urine 200 Other: Intake, Other Source NPO # Unmeasured Voids 1 Patient Weight 07/12/24 23:59 Weight 88.8 kg EKG is personally reviewed and interpreted which is normal.
--- NOTE | 2024-07-12 09:47 | PM.IMPN ---
Progress Note: A&P Assessment and Plan (1) Essential hypertension: Code(s): I10 - Essential (primary) hypertension Status: Acute (2) Hypertension associated with diabetes: Code(s): E11.59 - Type 2 diabetes mellitus with other circulatory complications; I15.2 - Hypertension secondary to endocrine disorders Status: Acute (3) Chest pain: Qualifiers: Chest pain type: unspecified Qualified Code(s): R07.9 - Chest pain, unspecified Code(s): R07.9 - Chest pain, unspecified Status: Acute (4) Non-ST elevation [place] (NSTEMI): Code(s): I21.4 - Non-ST elevation (NSTEMI) myocardial infarction Status: Acute (5) Mixed hyperlipidemia: Code(s): E78.2 - Mixed hyperlipidemia Status: Acute (6) Hyperlipidemia associated with type 2 diabetes mellitus: Code(s): E11.69 - Type 2 diabetes mellitus with other specified complication; E78.5 - Hyperlipidemia, unspecified Status: Acute Plan 64-year-old male with a past medical history of type 2 diabetes mellitus, essential hypertension and hyperlipidemia intolerant to statin therapy who presented to the ER from urgent care due to pain across his shoulders that radiated down both arms that have been ongoing since the evening of the . NSTEMI Chest pain, intermittent, since July 10 Elevated troponin x2 that is trending up, EKG shows no specific ST T-wave changes Patient is on heparin drip Continue aspirin 81 mg daily p.o. Crestor 10 mg daily p.o. nitroglycerin sublingual Pending echocardiogram Appreciate cardiology consultation, plans cardiac catheterization afternoon Essential hypertension Start losartan 25 mg daily Type 2 diabetes Start insulin sliding scale q.6 hours during p.o. Pancreas mass CT showed Indeterminate 7 mm focus of decreased attenuation within the proximal body of the pancreas Consult GI for evaluation treatment Subjective Date/time seen: 07/12/24 09:47 Interval history: I saw examined the patient today. Patient denies chest pain, palpitation, abdomen pain, nausea vomiting. Patient afebrile, blood pressure stable Exam Narrative: GENERAL: Pleasant, in no acute distress. Well-nourished. - EYES: EOMI. Anicteric. - HENT: Moist mucous membranes. - LUNGS: Clear to auscultation bilaterally, no wheezing, rhonchi, or rales. - CARDIOVASCULAR: Regular rate and rhythm. No murmur. No JVD. - ABDOMEN: Soft, non-tender and non-distended. No palpable masses. - EXTREMITIES: No edema. Peripheral pulses 2+. Non-tender. - NEUROLOGIC: No focal neurological deficits. CN II-XII grossly intact. - PSYCHIATRIC: Awake, Alert and oriented x 3. Appropriate mood and affect. - SKIN: No rashes or lesions. Warm. - LYMPH: No cervical lymphadenopathy. Objective Data Vital Signs Vital Signs: Vital Signs - 24 hr 07/11/24 15:38 07/11/24 16:43 07/11/24 18:41 Temperature 98.0 F Pulse Rate 77 76 79 Respiratory Rate 18 16 16 Blood Pressure 145/81 H 146/83 H 145/84 H Pulse Oximetry 96 94 Oxygen Delivery Room Air Room Air 07/11/24 20:55 07/11/24 21:25 07/11/24 22:00 Temperature 97.4 F L Pulse Rate 74 76 76 Respiratory Rate 15 15 Blood Pressure 130/66 144/78 H Pulse Oximetry 94 100 Oxygen Delivery 07/12/24 00:00 07/12/24 00:00 07/12/24 00:25 Temperature 97.6 F Pulse Rate 76 76 79 Respiratory Rate 15 15 Blood Pressure 133/79 Pulse Oximetry 100 100 Oxygen Delivery Room Air 07/12/24 02:00 07/12/24 04:00 07/12/24 04:00 Temperature Pulse Rate 67 65 65 Respiratory Rate 15 Blood Pressure Pulse Oximetry 100 Oxygen Delivery Room Air 07/12/24 04:35 07/12/24 06:00 07/12/24 08:00 Temperature 97.7 F 98 F Pulse Rate 69 69 72 Respiratory Rate 15 16 Blood Pressure 121/66 122/74 Pulse Oximetry 97 97 Oxygen Delivery Intake/Output Intake/Output: Intake & Output 07/09/24 07/10/24 07/11/24 07/12/24 23:59 23:59 23:59 23:59 Intake Total 31.8 488 Output Total 200 Balance 31.8 288 Meds/Results Medications: Active Medications Generic Name Dose Route Start Last Admin Trade Name Freq PRN Reason Stop Dose Admin Acetaminophen 650 mg 07/11/24 18:42 Acetaminophen 650 Mg Suppository RECTAL Q6H PRN Mild Pain (1-3) or Fever Artificial Tears 1 drop 07/12/24 02:13 Artificial Tears Ophth Soln 15 Ml Bottle EACH EYE QID PRN Dry Eye(s) Aspirin 81 mg 07/13/24 09:00 Aspirin 81 Mg Enteric Tablet PO [facility] Heparin Sodium (Porcine) 4,000 units 07/11/24 18:37 07/11/24 21:56 Heparin Sodium 5,000 Units/Ml Vial IV PUSH 4,000 units PRN PRN Administration aPTT less than 55 seconds Heparin Sodium (Porcine) 3,000 units 07/11/24 18:37 Heparin Sodium 5,000 Units/Ml Vial IV PUSH PRN PRN aPTT 55 - 70 seconds Heparin Sodium/Dextrose 25,000 units in 250 mls @ 13 mls/hr 07/11/24 18:40 07/12/24 04:42 Heparin Sodium/D5w 100 Units/Ml IV CONT 1,300 units/hr .[id number] [place] 13 mls/hr Titration Protocol 1,300 UNITS/HR Morphine Sulfate 2 mg 07/11/24 18:42 Morphine Sulfate (*Crx) 2 Mg/Ml Inj IV PUSH Q2H PRN Pain Rated 7-10 Nitroglycerin 0.4 mg 07/11/24 18:20 07/11/24 18:45 Nitroglycerin Sl 0.4 Mg Tablet SUBLINGUAL 0.4 mg Q5MIN PRN Administration Chest Pain Perflutren Lipid Microsphere 0 ml 07/12/24 02:14 Perflutren Lipid Microspheres 1.5 Ml Vial Diluted To 10 Ml Total Volume IV PUSH 07/15/24 02:15 ONCE PRN adequate visualization Protocol Rosuvastatin Calcium 10 mg 07/12/24 09:35 Rosuvastatin 10 Mg Tablet PO [facility] Radiology Results: ITS Impressions Chest/Abdomen/Pelvis CTA 07/11/24 17:35 IMPRESSION: No aortic dissection. No pulmonary embolus. 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 Indeterminate 7 mm focus of decreased attenuation within the proximal body of the pancreas for which nonemergent follow-up either contrast-enhanced CT or MRI with pancreatic mass protocol is recommended, unless this is a known finding. 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 Remaining mesenteric vasculature is widely patent. Labs Labs: Laboratory Results - last 24 hr 07/11/24 07/11/24 07/11/24 15:02 15:20 18:18 WBC 9.3 RBC 5.05 Hgb 16.6 Hct 47.7 MCV 94.5 MCH 32.9 MCHC 34.8 RDW 12.3 Plt Count 241 MPV 10.2 Immature Gran % (Auto) 0.3 Neut % (Auto) 70.3 Lymph % (Auto) 20.3 [place] % (Auto) 6.4 Eos % (Auto) 2.2 Baso % (Auto) 0.5 Lymph # (Auto) 1.88 [place] # (Auto) 0.6 Eos # (Auto) 0.2 Baso # (Auto) 0.1 Abs Immat Gran (auto) 0.03 Absolute Neuts (auto) 6.5 Absolute Nucleated RBC 0.000 Nucleated RBC % 0.0 PT INR APTT Sodium 137 Potassium 3.7 Chloride 100 Carbon Dioxide 21 L Anion Gap 16 H BUN 18 Creatinine 0.87 Estim Creat Clear Calc 76 Estimated GFR > 60 Glucose 139 H Calcium 10.6 H Total Bilirubin 0.7 AST 34 ALT 35 Alkaline Phosphatase 69 Troponin I 1.180 H* 2.460 H* D Total Protein 7.0 Albumin 4.5 Triglycerides Cholesterol LDL Cholesterol Direct HDL Direct Lipase 51 Influenza A (RT-PCR) Negative Influenza B (RT-PCR) Negative RSV (RT-PCR) Negative SARS-CoV-2 RNA (RT-PCR) Negative 07/11/24 07/12/24 21:17 04:20 WBC 7.9 RBC 4.77 Hgb 15.8 Hct 45.1 MCV 94.5 MCH 33.1 MCHC 35.0 RDW 12.3 Plt Count 190 MPV 9.8 Immature Gran % (Auto) 0.3 Neut % (Auto) 62.1 Lymph % (Auto) 25.1 [place] % (Auto) 8.8 H Eos % (Auto) 3.2 Baso % (Auto) 0.5 Lymph # (Auto) 1.98 [place] # (Auto) 0.7 H Eos # (Auto) 0.3 Baso # (Auto) 0.0 Abs Immat Gran (auto) 0.02 Absolute Neuts (auto) 4.9 Absolute Nucleated RBC 0.000 Nucleated RBC % 0.0 PT 13.3 INR 1.0 APTT 54.0 H 73.0 H Sodium 137 Potassium 3.8 Chloride 102 Carbon Dioxide 24 Anion Gap 11 BUN 15 Creatinine 0.82 Estim Creat Clear Calc 82 Estimated GFR > 60 Glucose 105 Calcium 9.3 Total Bilirubin AST ALT Alkaline Phosphatase Troponin I 3.040 H* D Total Protein Albumin Triglycerides 193 H Cholesterol 172 LDL Cholesterol Direct 111 HDL Direct 37 Lipase Influenza A (RT-PCR) Influenza B (RT-PCR) RSV (RT-PCR) SARS-CoV-2 RNA (RT-PCR)
[2024-07-12 10:13] LABS: Partial Thromboplastin Time 54.8 Seconds (22.3-36.8)
[2024-07-12] MEDS: HEPARIN SODIUM 5,000 UNITS/ML VIAL 4000 UNITS IV PUSH (10:46)
[2024-07-12] MEDS: ACETAMINOPHEN 325 MG TABLET 650 MG PO (10:53)
[2024-07-12] MEDS: ROSUVASTATIN 10 MG TABLET PO (10:53)
[2024-07-12 12:18] LABS: Glucose Point of Care 92 mg/dl (65-105)
--- NOTE | 2024-07-12 13:03 | P.SEDATION_ITS ---
Moderate Sedation Note-Pt Data Patient Data Diagnosis: NSTEMI Present Complaint: NSTEMI Procedure to be performed/Plan: Coronary angiography, left heart cath, +/- PCI Allergies Allergy/AdvReac Type Severity Reaction Status Date / Time No Known Allergies Allergy Mild Verified 07/11/24 14:28 Home Medications ?Medication ?Instructions ?Recorded ?Confirmed ?Type bupropion HCl 150 mg 24 hr tablet, 150 mg PO .q12 hr 07/12/24 07/12/24 History extended release (Wellbutrin XL) buspirone 10 mg tablet 10 mg PO TID 07/12/24 07/12/24 History carboxymethylcellulose 2 ea miscellaneous QID PRN dry 07/12/24 07/12/24 History eye(s) empagliflozin 5 mg-metformin 1,000 2 tablet PO ONCE 07/12/24 07/12/24 History mg tablet ipratropium bromide 21 mcg (0.03 2 spray intranasal TID PRN allergy 07/12/24 07/12/24 History %) nasal spray symptoms losartan 100 1 tablet PO DAILY 07/12/24 07/12/24 History mg-hydrochlorothiazide 12.5 mg tablet (Hyzaar) melatonin 5 mg capsule 5 mg PO HS PRN insomnia 07/12/24 07/12/24 History meloxicam 15 mg tablet 15 mg PO DAILY PRN arthritis 07/12/24 07/12/24 History rosuvastatin 10 mg tablet (Crestor) 5 mg PO DAILY 07/12/24 07/12/24 History semaglutide 1 mg/dose (4 mg/3 mL) 1 mg subcut WEEKLY 07/12/24 07/12/24 History subcutaneous pen injector sildenafil 100 mg tablet (Viagra) 100 mg PO DAILY PRN erectile 07/12/24 07/12/24 History dysfunction Current Medications: Active Medications Acetaminophen (Acetaminophen 650 Mg Suppository) 650 mg RECTAL Q6H PRN PRN Reason: Mild Pain (1-3) or Fever Acetaminophen (Acetaminophen 325 Mg Tablet) 650 mg PO Q6H PRN PRN Reason: Mild Pain (1-3) or Fever Last Admin: 07/12/24 10:53 Dose: 650 mg Artificial Tears (Artificial Tears Ophth Soln 15 Ml Bottle) 1 drop EACH EYE QID PRN PRN Reason: Dry Eye(s) Aspirin (Aspirin 81 Mg Enteric Tablet) 81 mg PO QAM [facility] Dextrose (Dextrose 50% 25 Gm/50 Ml Syringe) 12.5 gm IV PUSH PRN PRN; Protocol PRN Reason: Hypoglycemia Glucagon (Glucagon For Inj 1 Mg Vial) 1 mg IM PRN PRN; Protocol PRN Reason: Hypoglycemia Glucose (Glucose Oral Gel 15 Gm Of Glucse In 37.5 Gm Tube) 15 gm PO PRN PRN; Protocol PRN Reason: Hypoglycemia Heparin Sodium (Porcine) (Heparin Sodium 5,000 Units/Ml Vial) 4,000 units IV PUSH PRN PRN PRN Reason: aPTT less than 55 seconds Last Admin: 07/12/24 10:46 Dose: 4,000 units Heparin Sodium (Porcine) (Heparin Sodium 5,000 Units/Ml Vial) 3,000 units IV PUSH PRN PRN PRN Reason: aPTT 55 - 70 seconds Heparin Sodium/Dextrose (Heparin Sodium/D5w 100 Units/Ml) 25,000 units in 250 mls @ 13 mls/hr IV CONT .[id number] [place]; Protocol Last Titration: 07/12/24 10:51 Dose: 1,600 units/hr, 16 mls/hr Dextrose (Dextrose 5% 1,000 Ml) 1,000 mls @ 100 mls/hr IVPB PRN PRN; Protocol PRN Reason: Hypoglycemia Insulin Aspart (Insulin Aspart (*Bkc) 100 Units/Ml) 3 - 6 units SUB-Q Q6HR [facility]; Protocol Losartan Potassium (Losartan Potassium 25 Mg Tablet) 25 mg PO DAILY [facility] Morphine Sulfate (Morphine Sulfate (*Crx) 2 Mg/Ml Inj) 2 mg IV PUSH Q2H PRN PRN Reason: Pain Rated 7-10 Nitroglycerin (Nitroglycerin Sl 0.4 Mg Tablet) 0.4 mg SUBLINGUAL Q5MIN PRN PRN Reason: Chest Pain Last Admin: 07/11/24 18:45 Dose: 0.4 mg Perflutren Lipid Microsphere (Perflutren Lipid Microspheres 1.5 Ml Vial Diluted To 10 Ml Total Volume) 0 ml IV PUSH ONCE PRN; Protocol PRN Reason: adequate visualization Stop: 07/15/24 02:15 Rosuvastatin Calcium (Rosuvastatin 10 Mg Tablet) 10 mg PO QAM [facility] Last Admin: 07/12/24 10:53 Dose: 10 mg Sedation/Anesthesia: No previous sedation/anesthesia problems (including family history). [facility] Past Medical History Medical History Hypertension associated with diabetes Hyperlipidemia associated with type 2 diabetes mellitus Chronically dry eyes Obstructive sleep apnea Mild treated with a dental device Lumbar radiculopathy, chronic Mixed hyperlipidemia Intolerant to statin therapy Essential hypertension Type 2 diabetes mellitus Surgical History Surgical History S/P cubital tunnel release Bilateral History of umbilical hernia repair History of bilateral inguinal hernia repair History of arthroscopy of both knees History of bilateral carpal tunnel release Hx of excision of lamina of lumbar vertebra for decompression of spinal cord X2 History of microdiscectomy History of cervical spinal arthrodesis Family History Family History Mother Emphysema lung Grandparent Cerebrovascular accident Father Cancer Social History Social History Social History: The patient lives with his of 42 years. 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 He is a lifelong nonsmoker and does not drink alcohol or use illicit substances. He and his raised 1 daughter and 1 son. He served in the [employer] for 4 years. He receives his medical care at the [place]. Code status full code Surrogate decision maker: Smoking status: Never smoker Alcohol intake: never Substance use: never Do You Feel Safe in your Home?: Yes Lack of Transportation: No Lack of Food: Never True Current Housing: I Have Housing Concerned About Future Housing: No Difficulty Paying Gas/Electric Bills: No Difficulty Paying for Meds: No Currently Unemployed: No Education: Associate Degree Difficulty w/ Childcare or Family Care: No Spiritual care concerns: No Mod Sed Physical Exam Physical Exam Pre Procedural Exam: Normal: Appearance, Lungs, Heart Rate, Heart Rhythm, Extremities and Skin Hours since solid foods: 12 Hours since liquid intake: 8 Mallampati Classification: class III Internal Medicine - PN: Obj Da Vital Signs Vital Signs: Vital Signs - 24 hr 07/11/24 15:38 07/11/24 16:43 07/11/24 18:41 Temperature 36.7 C Pulse Rate 77 76 79 Respiratory Rate 18 16 16 Blood Pressure 145/81 H 146/83 H 145/84 H Pulse Oximetry 96 94 Oxygen Delivery Room Air Room Air 07/11/24 20:55 07/11/24 21:25 07/11/24 22:00 Temperature 36.3 C L Pulse Rate 74 76 76 Respiratory Rate 15 15 Blood Pressure 130/66 144/78 H Pulse Oximetry 94 100 Oxygen Delivery 07/12/24 00:00 07/12/24 00:00 07/12/24 00:25 Temperature 36.4 C Pulse Rate 76 76 79 Respiratory Rate 15 15 Blood Pressure 133/79 Pulse Oximetry 100 100 Oxygen Delivery Room Air 07/12/24 02:00 07/12/24 04:00 07/12/24 04:00 Temperature Pulse Rate 67 65 65 Respiratory Rate 15 Blood Pressure Pulse Oximetry 100 Oxygen Delivery Room Air 07/12/24 04:35 07/12/24 06:00 07/12/24 08:00 Temperature 36.5 C 36.6 C Pulse Rate 69 69 72 Respiratory Rate 15 16 Blood Pressure 121/66 122/74 Pulse Oximetry 97 97 Oxygen Delivery 07/12/24 08:00 07/12/24 08:00 07/12/24 10:00 Temperature Pulse Rate 73 73 Respiratory Rate Blood Pressure Pulse Oximetry 97 Oxygen Delivery Room Air 07/12/24 12:00 Temperature 36.8 C Pulse Rate 72 Respiratory Rate 18 Blood Pressure 121/69 Pulse Oximetry 95 Oxygen Delivery Intake/Output Intake/Output: Intake & Output 07/09/24 07/10/24 07/11/24 07/12/24 23:59 23:59 23:59 23:59 Intake Total 31.8 568.1 Output Total 200 Balance 31.8 368.1 Meds/Results Medications: Active Medications Generic Name Dose Route Start Last Admin Trade Name Freq PRN Reason Stop Dose Admin Acetaminophen 650 mg 07/11/24 18:42 Acetaminophen 650 Mg Suppository RECTAL Q6H PRN Mild Pain (1-3) or Fever Acetaminophen 650 mg 07/12/24 10:31 07/12/24 10:53 Acetaminophen 325 Mg Tablet PO 650 mg Q6H PRN Administration Mild Pain (1-3) or Fever Artificial Tears 1 drop 07/12/24 02:13 Artificial Tears Ophth Soln 15 Ml Bottle EACH EYE QID PRN Dry Eye(s) Aspirin 81 mg 07/13/24 09:00 Aspirin 81 Mg Enteric Tablet PO QAM [facility] Dextrose 12.5 gm 07/12/24 09:57 Dextrose 50% 25 Gm/50 Ml Syringe IV PUSH PRN PRN Hypoglycemia Protocol Glucagon 1 mg 07/12/24 09:57 Glucagon For Inj 1 Mg Vial IM PRN PRN Hypoglycemia Protocol Glucose 15 gm 07/12/24 09:57 Glucose Oral Gel 15 Gm Of Glucse In 37.5 Gm Tube PO PRN PRN Hypoglycemia Protocol Heparin Sodium (Porcine) 4,000 units 07/11/24 18:37 07/12/24 10:46 Heparin Sodium 5,000 Units/Ml Vial IV PUSH 4,000 units PRN PRN Administration aPTT less than 55 seconds Heparin Sodium (Porcine) 3,000 units 07/11/24 18:37 Heparin Sodium 5,000 Units/Ml Vial IV PUSH PRN PRN aPTT 55 - 70 seconds Heparin Sodium/Dextrose 25,000 units in 250 mls @ 13 mls/hr 07/11/24 18:40 07/12/24 10:51 Heparin Sodium/D5w 100 Units/Ml IV CONT 1,600 units/hr .[id number] [place] 16 mls/hr Titration Protocol 1,300 UNITS/HR Dextrose 1,000 mls @ 100 mls/hr 07/12/24 09:57 Dextrose 5% 1,000 Ml IVPB PRN PRN Hypoglycemia Protocol Insulin Aspart 3 - 6 units 07/12/24 12:00 Insulin Aspart (*Bkc) 100 Units/Ml SUB-Q Q6HR [facility] Protocol Losartan Potassium 25 mg 07/13/24 09:00 Losartan Potassium 25 Mg Tablet PO DAILY [facility] Morphine Sulfate 2 mg 07/11/24 18:42 Morphine Sulfate (*Crx) 2 Mg/Ml Inj IV PUSH Q2H PRN Pain Rated 7-10 Nitroglycerin 0.4 mg 07/11/24 18:20 07/11/24 18:45 Nitroglycerin Sl 0.4 Mg Tablet SUBLINGUAL 0.4 mg Q5MIN PRN Administration Chest Pain Perflutren Lipid Microsphere 0 ml 07/12/24 02:14 Perflutren Lipid Microspheres 1.5 Ml Vial Diluted To 10 Ml Total Volume IV PUSH 07/15/24 02:15 ONCE PRN adequate visualization Protocol Rosuvastatin Calcium 10 mg 07/12/24 09:35 07/12/24 10:53 Rosuvastatin 10 Mg Tablet PO 10 mg QAM [place] Administration Radiology Results: ITS Impressions Chest/Abdomen/Pelvis CTA 07/11/24 17:35 IMPRESSION: No aortic dissection. No pulmonary embolus. 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 Indeterminate 7 mm focus of decreased attenuation within the proximal body of the pancreas for which nonemergent follow-up either contrast-enhanced CT or MRI with pancreatic mass protocol is recommended, unless this is a known finding. 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 Remaining mesenteric vasculature is widely patent. Labs 07/12/24 04:20 07/12/24 04:20 Labs: Laboratory Results - last 24 hr 07/11/24 07/11/24 07/11/24 15:02 15:20 18:18 WBC 9.3 RBC 5.05 Hgb 16.6 Hct 47.7 MCV 94.5 MCH 32.9 MCHC 34.8 RDW 12.3 Plt Count 241 MPV 10.2 Immature Gran % (Auto) 0.3 Neut % (Auto) 70.3 Lymph % (Auto) 20.3 [place] % (Auto) 6.4 Eos % (Auto) 2.2 Baso % (Auto) 0.5 Lymph # (Auto) 1.88 [place] # (Auto) 0.6 Eos # (Auto) 0.2 Baso # (Auto) 0.1 Abs Immat Gran (auto) 0.03 Absolute Neuts (auto) 6.5 Absolute Nucleated RBC 0.000 Nucleated RBC % 0.0 PT INR APTT Sodium 137 Potassium 3.7 Chloride 100 Carbon Dioxide 21 L Anion Gap 16 H BUN 18 Creatinine 0.87 Estim Creat Clear Calc 76 Estimated GFR > 60 Glucose 139 H POC Capillary Glucose Calcium 10.6 H Total Bilirubin 0.7 AST 34 ALT 35 Alkaline Phosphatase 69 Troponin I 1.180 H* 2.460 H* D Total Protein 7.0 Albumin 4.5 Triglycerides Cholesterol LDL Cholesterol Direct HDL Direct Lipase 51 Influenza A (RT-PCR) Negative Influenza B (RT-PCR) Negative RSV (RT-PCR) Negative SARS-CoV-2 RNA (RT-PCR) Negative 07/11/24 07/12/24 07/12/24 21:17 04:20 09:48 WBC 7.9 RBC 4.77 Hgb 15.8 Hct 45.1 MCV 94.5 MCH 33.1 MCHC 35.0 RDW 12.3 Plt Count 190 MPV 9.8 Immature Gran % (Auto) 0.3 Neut % (Auto) 62.1 Lymph % (Auto) 25.1 [place] % (Auto) 8.8 H Eos % (Auto) 3.2 Baso % (Auto) 0.5 Lymph # (Auto) 1.98 [place] # (Auto) 0.7 H Eos # (Auto) 0.3 Baso # (Auto) 0.0 Abs Immat Gran (auto) 0.02 Absolute Neuts (auto) 4.9 Absolute Nucleated RBC 0.000 Nucleated RBC % 0.0 PT 13.3 INR 1.0 APTT 54.0 H 73.0 H 54.8 H Sodium 137 Potassium 3.8 Chloride 102 Carbon Dioxide 24 Anion Gap 11 BUN 15 Creatinine 0.82 Estim Creat Clear Calc 82 Estimated GFR > 60 Glucose 105 POC Capillary Glucose Calcium 9.3 Total Bilirubin AST ALT Alkaline Phosphatase Troponin I 3.040 H* D 3.580 H* Total Protein Albumin Triglycerides 193 H Cholesterol 172 LDL Cholesterol Direct 111 HDL Direct 37 Lipase Influenza A (RT-PCR) Influenza B (RT-PCR) RSV (RT-PCR) SARS-CoV-2 RNA (RT-PCR) 07/12/24 12:06 WBC RBC Hgb Hct MCV MCH MCHC RDW Plt Count MPV Immature Gran % (Auto) Neut % (Auto) Lymph % (Auto) [place] % (Auto) Eos % (Auto) Baso % (Auto) Lymph # (Auto) [place] # (Auto) Eos # (Auto) Baso # (Auto) Abs Immat Gran (auto) Absolute Neuts (auto) Absolute Nucleated RBC Nucleated RBC % PT INR APTT Sodium Potassium Chloride Carbon Dioxide Anion Gap BUN Creatinine Estim Creat Clear Calc Estimated GFR Glucose POC Capillary Glucose 92 Calcium Total Bilirubin AST ALT Alkaline Phosphatase Troponin I Total Protein Albumin Triglycerides Cholesterol LDL Cholesterol Direct HDL Direct Lipase Influenza A (RT-PCR) Influenza B (RT-PCR) RSV (RT-PCR) SARS-CoV-2 RNA (RT-PCR) ASA Classification/Sedation ASA Classification/Sedation ASA Class: III Emergent: No Risks: Risks, benefits and alternatives explained and patient/family accepted plan for sedation. Patient re-evaluated immediately prior to sedation.
--- NOTE | 2024-07-12 13:03 | WPDHPUPDATE1 ---
History and Physical Update Update Date/Time: 07/12/24 13:03 History and Physical has been reviewed, including an updated exam of the patient. There are NO changes in the patient's condition. Risks, benefits, and alternatives have been discussed and questions answered. Patient agrees to proceed with procedure.
--- NOTE | 2024-07-12 13:04 | P.PCNCC_ITS ---
Cardiac Cath Procedure Note Date of procedure:: 07/12/24 Performing physician:: CATHETERIZATION LABORATORY REPORT Procedure Date: 07/12/2024 Marksmanship Instructor: Akash Chavez M.D., [facility]? Referring Physician: Tre Canseco M.D. Anesthesia: Versed and Fentanyl were ordered and given in my presence at 13:55, procedure ended at 14:58. Supervision of nurse monitored moderate sedation with Versed and Fentanyl was provided for 63 minutes. Total of Versed 2mg and Fentanyl 75mcg were administered by the Wreath Inspector RN Sadie Nicole. Pre-op Diagnosis: NSTEMI Post-op Diagnosis: 1. Significant stenosis in proximal OM-2 s/p PCI with AVA x 1 (3.0mm x 12mm West AVA) 2. Significant stenosis in the proximal RPDA. Recommend outpatient staged PCI. 3. The proximal LAD at the level of the bifurcation of a small first diagonal branch has an eccentric 40-50% stenosis (seen best on the caudal views). The IFR of this lesion is negative at 0.93. 4. Elevated left ventricular end-diastolic pressure of 22mmHg Procedure(s): 1. Moderate sedation 2. Ultrasound-guided access of the right radial artery 3. Coronary angiography 4. Left heart cath 5. IVUS of the OM 6. PCI of the proximal OM-2 with AVA x 1 Access Site: Right radial artery Brief History and Clinical Indications: Patient is a 64 year old male who is referred for [facility] for NSTEMI. All risks, benefits and alternatives to left heart catheterization with or without percutaneous coronary intervention was discussed at length with the patient. Risk of complications including but not limited to bleeding, infection, arrhythmia, stroke, worsening kidney function, blood loss, groin hematoma, limb loss, emergency coronary artery bypass grafting, and even were discussed with the patient and all questions were answered. The patient understood and wished to proceed. Time out called, patient name, date of , medical record number, allergies, procedure performed, identify Marksmanship Instructor, patient and staff member concurred with accurate data, procedure carried on. Findings: LEFT HEART CATHETERIZATION FINDINGS: 1. Left main: The left main coronary artery is widely patent without any significant obstructive disease. 2. Left anterior descending: The proximal LAD at the level of the bifurcation of a small first diagonal branch has an eccentric 40-50% stenosis (seen best on the caudal views). The IFR of this lesion is negative at 0.93. The mid LAD has diffuse mild disease. The first diagonal branch is a very small caliber vessel with 99% ostial disease. 3. Left circumflex: The left circumflex artery has diffuse mild disease. There is a large caliber OM trunk which has an early bifurcation into two branches. OM-1 has mild disease in the proximal portion. OM-2 has a 90-99% stenosis in the proximal portion. 4. Right coronary artery: The RCA is the dominant vessel. The RCA has diffuse mild disease. Possible mild-moderate disease of the ostial RCA, however, can not rule out catheter-induced spasm; there was no pressure dampening with catheter e ngagement. The proximal RPDA has a 70-80% focal stenosis. 5. Left ventricle: A. End-diastolic pressure 22 mmHg. B. LV gram deferred. C. No significant gradient across aortic valve on catheter pullback. Description of Procedure: Informed consent signed and placed in the chart. Patient transferred to lab systems analyst room. Prepped and draped in usual sterile fashion. 2% lidocaine injected subcutaneously in right wrist area. 22-gauge venipuncture catheter used to access the right radial artery under ultrasound guidance. 6-FR slender sheath placed in right radial artery. Nitroglycerine and Verapamil were given intraarterial through the sheath. Versacore wire advanced under fluoroscopy 5F Tig 4 diagnostic catheter engaged Left Main Coronary Artery. 5F FR 4 diagnostic catheter engaged Right Coronary Artery Multiple orthogonal angiogram obtained and reviewed 5F FR 4 diagnostic catheter crossed aortic valve to obtain LVEDP, LV angiogram deferred. Hemostasis was achieved by application of TR band. ? Procedure Description for PCI: Angiomax was used for anticoagulation. 6F CLS 3.0 guide catheter was used to intubate the left main. We decided to IFR the proximal LAD lesion first. 0.014 IFR coronary wire was advanced into the left main, calibrated, and then advanced distal to the LAD lesion. IFR was 0.93 (Negative. Pathological is <0.89). The IFR wire was then retracted from the LAD and redirected to the distal OM-2. There was poor guide catheter support, therefore, advanced a 6F Guideliner with balloon assist for better guide catheter support. The lesion was pre-dilated with a 2.5 mm x 10 mm balloon inflated to high MONI. IVUS catheter advanced distal to the lesion and reference measurements obtained. Intracoronary NTG was administered. A 3.0mm x 12mm Leoncio AVA was successfully deployed into proximal OM-2. Intracoronary NTG was administered Follow-up angiograms showed a good result Coronary wire and guide-catheter were removed No angiographic complications identified. Disposition: Floor Plan: The patient will be monitored in the recovery area. DAPT for 1 year followed by ASA indefinitely. High intensity statin. Continue aggressive medical therapy and risk factor modification. Patient will be seeing a ironing machine operator at the [place] next week on 07/20/2024. Instructed patient to keep that appointment. CDs of his cath films were made for patient to take with him and give to his ironing machine operator. His RPDA lesion can be staged as an outpatient with his [place] [facility] team. ? Akash Chavez M.D. Interventional Cardiology
[2024-07-12 18:29] LABS: Glucose Point of Care 132 mg/dl (65-105)
[2024-07-12 20:29] LABS: Glucose Point of Care 110 mg/dl (65-105)
[2024-07-12] MEDS: SODIUM CHLORIDE 0.9% IV 1,000 ML 125 ML IV CONT (20:40)
[2024-07-12] MEDS: TICAGRELOR 90 MG TABLET PO (21:01)
[2024-07-13] VITALS (9 sets, daily range): BP systolic 101–128; BP diastolic 63–67; PULSE 72–84; RESP 16–18; TEMP 36.6–37.1; O2SAT 96–97
[2024-07-13 07:47] LABS: Glucose Point of Care 104 mg/dl (65-105)
--- NOTE | 2024-07-13 08:09 | PC.NURSE ---
Dr. Crabtree notified home meds need to be restarted. Verbalizes understanding.
--- NOTE | 2024-07-13 08:17 | P.PNIM_ITS ---
Progress Note: A&P Assessment and Plan (1) Non-ST elevation [place] (NSTEMI): Code(s): I21.4 - Non-ST elevation (NSTEMI) myocardial infarction Status: Acute (2) Essential hypertension: Code(s): I10 - Essential (primary) hypertension Status: Acute (3) Type 2 diabetes mellitus: Qualifiers: Diabetes mellitus complication status: without complication Diabetes mellitus long filler cigar roller machine insulin use: without skilled nursing use Qualified Code(s): E11.9 - Type 2 diabetes mellitus without complications Code(s): E11.9 - Type 2 diabetes mellitus without complications Status: Acute (4) Mixed hyperlipidemia: Code(s): E78.2 - Mixed hyperlipidemia Status: Acute Plan 64-year-old male with a past medical history of type 2 diabetes mellitus, essential hypertension and hyperlipidemia intolerant to statin therapy who presented to the ER from urgent care due to pain across his shoulders that radiated down both arms that have been ongoing since the evening of the . NSTEMI Chest pain, intermittent, since July 10 Elevated troponin x2 that is trending up, EKG shows no specific ST T-wave changes Patient received heparin drip on aspirin 81 mg daily p.o. Crestor 10 mg daily p.o. nitroglycerin sublingual echocardiogram 07/12 1. Left ventricular chamber dimension is normal. 2. Left ventricular systolic function is normal, estimated at 55-60%. 3. There is mildly increased left ventricular wall thickness. 4. The left ventricular diastolic function is grade I diastolic dysfunction. 5. Right ventricular systolic function is normal. 6. There is mild aortic valve regurgitation. 7. There is mild mitral valve regurgitation. 8. There is mild tricuspid valve regurgitation. Appreciate cardiology consultation, cardiac catheterization 2/ Status post cardiac catheterization D1, A 3.0mm x 12mm [place] AVA was succes sfully deployed into proximal OM-2. 2/6 Essential hypertension Continue losartan 25 mg daily, aspirin 81 mg daily p.o., Brilinta 90 mg b.i.d. p.o. Type 2 diabetes Start insulin sliding scale q.6 hours during p.o. Pancreas mass CT showed Indeterminate 7 mm focus of decreased attenuation within the proximal body of the pancreas Consult GI for evaluation treatment Patient declines further workup of the pancreas, patient wants to go to back to the [facility] for further evaluation treatment Discussed case with internal medicine doctor, Dr. Chavez who recommends to discharge patient today . Subjective Date/time seen: 07/13/24 08:17 Interval history: I saw examined the patient today. Patient denies chest pain, palpitation, abdomen pain, nausea vomiting. Patient afebrile, blood pressure stable Exam Narrative: GENERAL: Pleasant, in no acute distress. Well-nourished. - EYES: EOMI. Anicteric. - HENT: Moist mucous membranes. - LUNGS: Clear to auscultation bilateral ly, no wheezing, rhonchi, or rales. - CARDIOVASCULAR: Regular rate and rhyth m. No murmur. No JVD. - ABDOMEN: Soft, non-tender and non-dist ended. No palpable masses. - EXTREMITIES: No edema. Peripheral puls es 2+. Non-tender. - NEUROLOGIC: No focal neurological defi cits. CN II-XII grossly intact. - PSYCHIATRIC: Awake, Alert and oriented x 3. Appropriate mood and affect. - SKIN: No rashes or lesions. Warm. - LYMPH: No cervical lymphadenopathy. Objective Data Vital Signs Vital Signs: Vital Signs - 24 hr 07/12/24 10:00 07/12/24 12:00 07/12/24 12:00 Temperature 98.3 F Pulse Rate 73 72 Pulse Rate [Right Radial] Respiratory Rate 18 Blood Pressure 121/69 Pulse Oximetry 95 95 Oxygen Delivery Room Air 07/12/24 12:00 07/12/24 15:25 07/12/24 15:25 Temperature Pulse Rate 73 76 Pulse Rate [Right Radial] 74 Respiratory Rate 12 Blood Pressure 101/70 Pulse Oximetry 96 Oxygen Delivery Room Air 07/12/24 15:30 07/12/24 15:30 07/12/24 15:45 Temperature Pulse Rate 76 Pulse Rate [Right Radial] 75 73 Respiratory Rate 13 Blood Pressure 102/69 Pulse Oximetry 96 Oxygen Delivery Room Air 07/12/24 15:45 07/12/24 16:00 07/12/24 16:00 Temperature 98 F 98 F Pulse Rate 73 73 Pulse Rate [Right Radial] 73 Respiratory Rate 16 13 Blood Pressure 104/76 113/73 Pulse Oximetry 95 96 Oxygen Delivery Room Air Room Air 07/12/24 16:30 07/12/24 16:30 07/12/24 17:00 Temperature Pulse Rate 78 Pulse Rate [Right Radial] 75 78 Respiratory Rate 18 Blood Pressure 126/74 Pulse Oximetry 97 Oxygen Delivery Room Air 07/12/24 17:00 07/12/24 17:15 07/12/24 17:15 Temperature Pulse Rate 75 79 Pulse Rate [Right Radial] 79 Respiratory Rate 12 14 Blood Pressure 119/77 110/71 Pulse Oximetry 97 97 Oxygen Delivery Room Air Room Air 07/12/24 17:30 07/12/24 17:30 07/12/24 17:45 Temperature Pulse Rate 77 76 Pulse Rate [Right Radial] 77 Respiratory Rate 16 16 Blood Pressure 119/64 124/65 Pulse Oximetry 97 97 Oxygen Delivery Room Air Room Air 07/12/24 17:45 07/12/24 18:00 07/12/24 18:00 Temperature Pulse Rate 76 Pulse Rate [Right Radial] 76 76 Respiratory Rate 16 Blood Pressure 123/68 Pulse Oximetry 97 Oxygen Delivery Room Air 07/12/24 18:00 07/12/24 18:15 07/12/24 18:15 Temperature Pulse Rate 78 77 Pulse Rate [Right Radial] 77 Respiratory Rate 14 Blood Pressure 125/77 Pulse Oximetry 97 Oxygen Delivery Room Air 07/12/24 18:30 07/12/24 18:30 07/12/24 18:45 Temperature Pulse Rate 74 Pulse Rate [Right Radial] 74 78 Respiratory Rate 16 Blood Pressure 124/78 Pulse Oximetry 98 Oxygen Delivery Room Air 07/12/24 18:45 07/12/24 19:00 07/12/24 19:00 Temperature Pulse Rate 78 73 Pulse Rate [Right Radial] 73 Respiratory Rate 14 16 Blood Pressure 141/78 H 119/71 Pulse Oximetry 98 98 Oxygen Delivery Room Air 07/12/24 19:15 07/12/24 19:15 07/12/24 19:45 Temperature Pulse Rate 81 Pulse Rate [Right Radial] 81 77 Respiratory Rate 14 Blood Pressure 139/80 Pulse Oximetry 99 Oxygen Delivery 07/12/24 19:45 07/12/24 20:00 07/12/24 20:00 Temperature Pulse Rate 77 82 Pulse Rate [Right Radial] 82 Respiratory Rate 16 16 Blood Pressure 134/91 H 143/78 H Pulse Oximetry 99 99 Oxygen Delivery 07/12/24 20:00 07/12/24 20:00 07/12/24 20:00 Temperature Pulse Rate 18 L 76 Pulse Rate [Right Radial] 76 Respiratory Rate 16 Blood Pressure Pulse Oximetry 95 Oxygen Delivery Room Air 07/12/24 20:29 07/12/24 20:43 07/12/24 22:02 Temperature 98.0 F Pulse Rate 18 L 79 Pulse Rate [Right Radial] 76 Respiratory Rate Blood Pressure 123/79 128/76 Pulse Oximetry 95 Oxygen Delivery 07/12/24 22:53 07/12/24 23:07 07/12/24 23:07 Temperature Pulse Rate 75 69 69 Pulse Rate [Right Radial] Respiratory Rate 16 Blood Pressure 118/63 Pulse Oximetry 95 Oxygen Delivery Room Air 07/13/24 00:05 07/13/24 03:31 07/13/24 03:32 Temperature 98 F Pulse Rate 72 75 75 Pulse Rate [Right Radial] Respiratory Rate 18 18 Blood Pressure 128/63 Pulse Oximetry 96 96 Oxygen Delivery Room Air 07/13/24 03:51 07/13/24 05:56 Temperature 98.7 F Pulse Rate 73 84 Pulse Rate [Right Radial] Respiratory Rate 18 Blood Pressure 120/66 Pulse Oximetry 97 Oxygen Delivery Intake/Output Intake/Output: Intake & Output 07/10/24 07/11/24 07/12/24 07/13/24 23:59 23:59 23:59 23:59 Intake Total 31.8 873.1 350 Output Total 400 600 Balance 31.8 473.1 -250 Meds/Results Medications: Active Medications Generic Name Dose Route Start Last Admin Trade Name Freq PRN Reason Stop Dose Admin Acetaminophen 650 mg 07/11/24 18:42 Acetaminophen 650 Mg Suppository RECTAL Q6H PRN Mild Pain (1-3) or Fever Acetaminophen 650 mg 07/12/24 10:31 07/12/24 10:53 Acetaminophen 325 Mg Tablet PO 650 mg Q6H PRN Administration Mild Pain (1-3) or Fever Artificial Tears 1 drop 07/12/24 02:13 Artificial Tears Ophth Soln 15 Ml Bottle EACH EYE QID PRN Dry Eye(s) Aspirin 81 mg 07/13/24 09:00 Aspirin 81 Mg Enteric Tablet PO QAM [facility] Dextrose 12.5 gm 07/12/24 09:57 Dextrose 50% 25 Gm/50 Ml Syringe IV PUSH PRN PRN Hypoglycemia Protocol Glucagon 1 mg 07/12/24 09:57 Glucagon For Inj 1 Mg Vial IM PRN PRN Hypoglycemia Protocol Glucose 15 gm 07/12/24 09:57 Glucose Oral Gel 15 Gm Of Glucse In 37.5 Gm Tube PO PRN PRN Hypoglycemia Protocol Dextrose 1,000 mls @ 100 mls/hr 07/12/24 09:57 Dextrose 5% 1,000 Ml IVPB PRN PRN Hypoglycemia Protocol Insulin Aspart 3 - 6 units 07/12/24 12:00 07/13/24 03:33 Insulin Aspart (*Bkc) 100 Units/Ml SUB-Q Not Given Q6HR [place] Protocol Losartan Potassium 25 mg 07/13/24 09:00 Losartan Potassium 25 Mg Tablet PO DAILY [facility] Morphine Sulfate 2 mg 07/11/24 18:42 Morphine Sulfate (*Crx) 2 Mg/Ml Inj IV PUSH Q2H PRN Pain Rated 7-10 Nitroglycerin 0.4 mg 07/11/24 18:20 07/11/24 18:45 Nitroglycerin Sl 0.4 Mg Tablet SUBLINGUAL 0.4 mg Q5MIN PRN Administration Chest Pain Perflutren Lipid Microsphere 0 ml 07/12/24 02:14 Perflutren Lipid Microspheres 1.5 Ml Vial Diluted To 10 Ml Total Volume IV PUSH 07/15/24 02:15 ONCE PRN adequate visualization Protocol Rosuvastatin Calcium 10 mg 07/12/24 09:35 07/12/24 10:53 Rosuvastatin 10 Mg Tablet PO 10 mg QAM [place] Administration Ticagrelor 90 mg 07/12/24 21:00 07/12/24 21:01 Ticagrelor 90 Mg Tablet PO 90 mg Q12HR [place] Administration Radiology Results: ITS Impressions Chest/Abdomen/Pelvis CTA 07/11/24 17:35 IMPRESSION: No aortic dissection. No pulmonary embolus. 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 Indeterminate 7 mm focus of decreased attenuation within the proximal body of the pancreas for which nonemergent follow-up either contrast-enhanced CT or MRI with pancreatic mass protocol is recommended, unless this is a known finding. 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 Remaining mesenteric vasculature is widely patent. Labs Labs: Laboratory Results - last 24 hr 07/12/24 07/12/24 07/12/24 09:48 12:06 17:42 APTT 54.8 H POC Capillary Glucose 92 132 H Troponin I 3.580 H* 07/12/24 07/13/24 20:22 07:25 APTT POC Capillary Glucose 110 H 104 Troponin I
--- NOTE | 2024-07-13 09:42 | PM.DS ---
DS: Admitting Diagnosis Discharge Date 07/13/24 Admitting Diagnosis (1) Non-ST elevation [place] (NSTEMI): Code(s): I21.4 - Non-ST elevation (NSTEMI) myocardial infarction Status: Acute (2) Essential hypertension: Code(s): I10 - Essential (primary) hypertension Status: Acute (3) Type 2 diabetes mellitus: Qualifiers: Diabetes mellitus complication status: without complication Diabetes mellitus watermelon inspector insulin use: without [place] [facility] use Qualified Code(s): E11.9 - Type 2 diabetes mellitus without complications Code(s): E11.9 - Type 2 diabetes mellitus without complications Status: Acute (4) Mixed hyperlipidemia: Code(s): E78.2 - Mixed hyperlipidemia Status: Acute DS: Discharge Diagnosis Discharge Diagnosis (1) Non-ST elevation FL (NSTEMI): Code(s): I21.4 - Non-ST elevation (NSTEMI) myocardial infarction Status: Acute (2) Essential hypertension: Code(s): I10 - Essential (primary) hypertension Status: Acute (3) Type 2 diabetes mellitus: Qualifiers: Diabetes mellitus watermelon inspector insulin use: without [place] use Diabetes mellitus complication status: without complication Qualified Code(s): E11.9 - Type 2 diabetes mellitus without complications Code(s): E11.9 - Type 2 diabetes mellitus without complications Status: Acute (4) Mixed hyperlipidemia: Code(s): E78.2 - Mixed hyperlipidemia Status: Acute DS: Summary Hospital Course Hospital Course: 64-year-old male with a past medical history of type 2 diabetes mellitus, essential hypertension and hyperlipidemia intolerant to statin therapy who presented to the ER from urgent care due to pain across his shoulders that radiated down both arms that have been ongoing since the evening of the . The following med issues have been addressed during hospitalization NSTEMI Chest pain, intermittent, since July 10 Elevated troponin x2 that is trending up, EKG shows no specific ST T-wave changes Patient received heparin drip on aspirin 81 mg daily p.o. Crestor 10 mg daily p.o. nitroglycerin sublingual echocardiogram 07/12 1. Left ventricular chamber dimension is normal. 2. Left ventricular systolic function is normal, estimated at 55-60%. 3. There is mildly increased left ventricular wall thickness. 4. The left ventricular diastolic function is grade I diastolic dysfunction. 5. Right ventricular systolic function is normal. 6. There is mild aortic valve regurgitation. 7. There is mild mitral valve regurgitation. 8. There is mild tricuspid valve regurgitation. Appreciate cardiology consultation, cardiac catheterization 07/13 Status post cardiac catheterization D1, A 3.0mm x 12mm [place] AVA was successfully deployed into proximal OM-2. / Essential hypertension Continue losartan 25 mg daily, aspirin 81 mg daily p.o., Brilinta 90 mg b.i.d. p.o. Type 2 diabetes Start insulin sliding scale q.6 hours during p.o. Pancreas mass CT showed Indeterminate 7 mm focus of decreased attenuation within the proximal body of the pancreas Consult GI for evaluation treatment Patient declines further workup of the pancreas, patient wants to go to back to the [facility] for further evaluation treatment Discussed case with dairy powder mixer operator, Dr. Chavez who recommends to discharge patient today . Time Spent with Patient Time attestation: Total time spent providing and/or coordinating discharge services: Exam Narrative: GENERAL: Pleasant, in no acute distress. Well-nourished. - EYES: EOMI. Anicteric. - HENT: Moist mucous membranes. - LUNGS: Clear to auscultation bilaterally, no wheezing, rhonchi, or rales. - CARDIOVASCULAR: Regular rate and rhythm. No murmur. No JVD. - ABDOMEN: Soft, non-tender and non-distended. No palpable masses. - EXTREMITIES: No edema. Peripheral pulses 2+. Non-tender. - NEUROLOGIC: No focal neurological deficits. CN II-XII grossly intact. - PSYCHIATRIC: Awake, Alert and oriented x 3. Appropriate mood and affect. - SKIN: No rashes or lesions. Warm. - LYMPH: No cervical lymphadenopathy. DS: Data Data Completed and Pending Labs on day of discharge: Labs from last 24 hours 07/13/24 07/12/24 07/12/24 07:25 20:22 17:42 APTT POC Capillary Glucose 104 110 H 132 H Troponin I 07/12/24 07/12/24 12:06 09:48 APTT 54.8 H POC Capillary Glucose 92 Troponin I 3.580 H* Discharge Plan Discharge Attending physician on discharge: Anthony Crabtree Consulting providers: Patel Canseco Discharging Clinician: Anthony Crabtree Anticipated Discharge Date/Time: 07/13/24 10:47 Patient Disposition: Home, Self-Care Activity: as tolerated Diet: as tolerated and heart healthy Discharge Instructions: [facility] [address] [place] [address] DISCHARGE INSTRUCTIONS - POST RADIAL CATH Activity 1. No driving for 24 hours. 2. No lifting more than 5 lb with affected arm for 1 week. 3. May shower ( tomorrow) but no excessive soaking of affected hand/wrist (such as washing dishes), swimming pool or hot tub for 5 days. Wound Care 1. May remove arm board in the morning. 2. May remove gauze dressing in the morning and put Band-Aid over affected radial site. Keep site covered for 3 days. 3. Observe for redness, drainage, swelling or bleeding. Medications DO NOT STOP YOUR MEDICATIONS ONLY YOUR DAYLIGHT DRILLER CAN STOP THE FOLLOWING MEDICATIONS - PLEASE CALL THE OFFICE WITH QUESTIONS. *Aspirin *Atorvastatin *Losartan *Clopidogrel (Plavix) Important Reminders 1. Keep your stent card in your wallet at all times 2. Follow a heart healthy diet paying extra attention to cholesterol and fats. 3. Stay hydrated. 4. If you have chest pain unrelieved by rest or nitroglycerin (if prescribed) call 911 immediately. 5. If you miss one dose of Brilinta (if prescribed) take a tablet at the next time due. If you miss 2 doses take a tablet when you remember and resume at the next time due. *For any other questions please call the office at [phone]. Office hours are 8AM 4:30PM Wednesday through Wednesday. Patient Instructions: Antibiotic Form, Heparin/Sodium Chloride (By injection), High Troponin Levels (GEN) Patient Language: Montenegrin Stand Alone Forms: General Discharge Information Follow-up/Referrals: Patel Canseco MD [Physician] - (See dairy powder mixer operator at scheduled appointment) Discharge Medications: New aspirin 81 mg Tablet,Delayed Release (Dr/Ec) 81 mg PO QAM Qty: 60 0RF clopidogrel [Plavix] 75 mg tablet 75 mg PO DAILY Qty: 30 11RF losartan 25 mg Tablet 25 mg PO DAILY 30 Days Qty: 30 3RF Continued empagliflozin-metformin 5-1,000 mg tablet 2 tablet PO DAILY buspirone 10 mg tablet 10 mg PO TID melatonin 5 mg capsule 5 mg PO HS PRN (Reason: insomnia) ipratropium bromide 21 mcg (0.03 %) spray,non-aerosol 2 spray intranasal TID PRN (Reason: allergy symptoms) Rx Instructions: administer into each nostril rosuvastatin [Crestor] 10 mg tablet 5 mg PO DAILY sildenafil [Viagra] 100 mg tablet 100 mg PO DAILY PRN (Reason: erectile dysfunction) Rx Instructions: administer 30 minutes to 4 hours before activity. Take one tablet by mouth two times per week as needed for erectile dysfunction - limit to 6 doses per 30 days. carboxymethylcellulose Granules 2 ea miscellaneous QID PRN (Reason: dry eye(s)) Rx Instructions: Instill 1 drop in both eyes four times a day as needed for dry eyes. semaglutide 1 mg/dose (4 mg/3 mL) pen injector 1 mg subcut WEEKLY bupropion HCl [Wellbutrin SR] 150 mg tablet sustained-release 12 hr 150 mg PO Q12H Discontinued losartan-hydrochlorothiazide [Hyzaar] 100-12.5 mg tablet 1 tablet PO DAILY meloxicam 15 mg tablet 15 mg PO DAILY PRN (Reason: arthritis) Date of admission: 07/12/24 17:35 Primary Care Provider: UNKNOWN,DOCTOR Admitting Provider: Reina Neal Attending physician on admission: Reina Neal Condition: Serious
[2024-07-13] MEDS: buPROPion HCL SR (12 HR) 150 MG TAB PO (10:13)
[2024-07-13] MEDS: ROSUVASTATIN 10 MG TABLET PO (10:14)
[2024-07-13] MEDS: ASPIRIN 81 MG ENTERIC TABLET PO (10:14)
[2024-07-13] MEDS: TICAGRELOR 90 MG TABLET PO (10:14)
[2024-07-13] MEDS: LOSARTAN POTASSIUM 25 MG TABLET PO (10:14)
[2024-07-13] MEDS: busPIRone HCL 10 MG TABLET PO (10:21)
--- NOTE | 2024-07-13 11:03 | P.PNCA_ITS ---
Progress Note: A&P Assessment and Plan (1) Non-ST elevation TX (NSTEMI): Code(s): I21.4 - Non-ST elevation (NSTEMI) myocardial infarction Status: Acute Assessment and Plan: Status post PCI/AVA x 1 to the OM2. * DAPT for 1 year followed by ASA indefinitely. Unable to afford Brilinta, script sent to [facility] with 600mg loading dose followed by 75mg daily thereafter. * High intensity statin. * Continue aggressive medical therapy and risk factor modification. * Patient will be seeing a coal loader at the [place] next week on 07/20/2024. Instructed patient to keep that appointment. CDs of his cath films were made for patient to take with him and give to his coal loader. His RPDA lesion can be staged as an outpatient with his [facility] team. * Echo showed normal LV function with mild AI, MR, and TR * OK for discharge today from cardiac standpoint (2) Hyperlipidemia associated with type 2 diabetes mellitus: Code(s): E11.69 - Type 2 diabetes mellitus with other specified complication; E78.5 - Hyperlipidemia, unspecified Status: Acute Assessment and Plan: Start statin (3) Hypertension associated with diabetes: Code(s): E11.59 - Type 2 diabetes mellitus with other circulatory complications; I15.2 - Hypertension secondary to endocrine disorders Status: Acute Assessment and Plan: Resuming losartan and add to this regimen depending on results of angiogram (4) Pancreatic mass: Code(s): K86.89 - Other specified diseases of pancreas Status: Acute Assessment and Plan: He does have a pancreatic mass incidentally found on his CT scan yesterday. This does need further follow-up and evaluation as recommended and the CT scan report. Subjective Date/time seen: 07/13/24 11:03 Interval history: Cardiology follow up visit He feels well today and has no complaints. He denies chest pain, shortness of breath. Review of Systems Review of Systems: All systems reviewed & are unremarkable except as noted in HPI and below Constitutional: Constitutional: Denies body ache(s) and Denies excessive sweating Eyes: Eyes: Denies blurry vision ENT: Reports Normal hearing present Cardiovascular: Cardiovascular: Denies chest pain and Denies pedal edema Respiratory: Respiratory: Denies hemoptysis Gastrointestinal: Gastrointestinal: Denies abdominal pain Genitourinary: Genitourinary: Denies hematuria Musculoskeletal: Musculoskeletal: Reports back pain Integumentary/Breasts: Skin/Breast: Denies dry skin Neurologic: Reports Normal hearing present and Denies Abnormal speech present Psychiatric: Psychiatric: Denies anxiety Endocrine: Endocrine: Denies excessive sweating Hematologic/Lymphatic: Hematologic/Lymphatic: Denies easy bleeding Allergic/Immunologic: Allergic/Immunologic: Denies GI upset with certain foods Exam Narrative: Awake alert oriented appears to be in no acute distress. Appears stated age Const: General: comfortable and no acute distress HENMT: Face/Nose/Sinus: Normal nares present Mouth: Yes moist mucous membranes Eyes: General: appearance normal, both eyes and all related structures Sclera: sclerae normal Neck: Neck: supple and no JVD Chest: Other: No reproducible chest wall pain to palpation Resp: Effort & Inspection: normal respiratory effort Auscultation: clear to auscultation bilaterally Cardio: Rate: regular rate Rhythm: regular rhythm Heart sounds: no murmurs GI: Inspection: non-distended Auscultation: normal bowel sounds Skin: General skin exam: normal color Neuro: General: gait normal Cranial nerves: Yes Normal hearing present Speech: normal speech and No Abnormal speech present Extrem: General: normal to inspection Other: R radial arterial access site free from bleeding, hematoma. R radial pulse intact, good distal perfusion. Psych: Mental Status: mental status grossly normal Affect: normal affect Objective Data Vital Signs Vital Signs: Vital Signs - 24 hr 07/12/24 12:00 07/12/24 12:00 07/12/24 12:00 Temperature 36.8 C Pulse Rate 72 73 Pulse Rate [Right Radial] Respiratory Rate 18 Blood Pressure 121/69 Pulse Oximetry 95 95 Oxygen Delivery Room Air 07/12/24 15:25 07/12/24 15:25 07/12/24 15:30 Temperature Pulse Rate 76 Pulse Rate [Right Radial] 74 75 Respiratory Rate 12 Blood Pressure 101/70 Pulse Oximetry 96 Oxygen Delivery Room Air 07/12/24 15:30 07/12/24 15:45 07/12/24 15:45 Temperature 36.6 C Pulse Rate 76 73 Pulse Rate [Right Radial] 73 Respiratory Rate 13 16 Blood Pressure 102/69 104/76 Pulse Oximetry 96 95 Oxygen Delivery Room Air Room Air 07/12/24 16:00 07/12/24 16:00 07/12/24 16:30 Temperature 36.6 C Pulse Rate 73 Pulse Rate [Right Radial] 73 75 Respiratory Rate 13 Blood Pressure 113/73 Pulse Oximetry 96 Oxygen Delivery Room Air 07/12/24 16:30 07/12/24 17:00 07/12/24 17:00 Temperature Pulse Rate 78 75 Pulse Rate [Right Radial] 78 Respiratory Rate 18 12 Blood Pressure 126/74 119/77 Pulse Oximetry 97 97 Oxygen Delivery Room Air Room Air 07/12/24 17:15 07/12/24 17:15 07/12/24 17:30 Temperature Pulse Rate 79 77 Pulse Rate [Right Radial] 79 Respiratory Rate 14 16 Blood Pressure 110/71 119/64 Pulse Oximetry 97 97 Oxygen Delivery Room Air Room Air 07/12/24 17:30 07/12/24 17:45 07/12/24 17:45 Temperature Pulse Rate 76 Pulse Rate [Right Radial] 77 76 Respiratory Rate 16 Blood Pressure 124/65 Pulse Oximetry 97 Oxygen Delivery Room Air 07/12/24 18:00 07/12/24 18:00 07/12/24 18:00 Temperature Pulse Rate 76 78 Pulse Rate [Right Radial] 76 Respiratory Rate 16 Blood Pressure 123/68 Pulse Oximetry 97 Oxygen Delivery Room Air 07/12/24 18:15 07/12/24 18:15 07/12/24 18:30 Temperature Pulse Rate 77 Pulse Rate [Right Radial] 77 74 Respiratory Rate 14 Blood Pressure 125/77 Pulse Oximetry 97 Oxygen Delivery Room Air 07/12/24 18:30 07/12/24 18:45 07/12/24 18:45 Temperature Pulse Rate 74 78 Pulse Rate [Right Radial] 78 Respiratory Rate 16 14 Blood Pressure 124/78 141/78 H Pulse Oximetry 98 98 Oxygen Delivery Room Air Room Air 07/12/24 19:00 07/12/24 19:00 07/12/24 19:15 Temperature Pulse Rate 73 Pulse Rate [Right Radial] 73 81 Respiratory Rate 16 Blood Pressure 119/71 Pulse Oximetry 98 Oxygen Delivery 07/12/24 19:15 07/12/24 19:45 07/12/24 19:45 Temperature Pulse Rate 81 77 Pulse Rate [Right Radial] 77 Respiratory Rate 14 16 Blood Pressure 139/80 134/91 H Pulse Oximetry 99 99 Oxygen Delivery 07/12/24 20:00 07/12/24 20:00 07/12/24 20:00 Temperature Pulse Rate 82 18 L Pulse Rate [Right Radial] 82 Respiratory Rate 16 16 Blood Pressure 143/78 H Pulse Oximetry 99 95 Oxygen Delivery Room Air 07/12/24 20:00 07/12/24 20:00 07/12/24 20:29 Temperature 36.7 C Pulse Rate 76 18 L Pulse Rate [Right Radial] 76 Respiratory Rate Blood Pressure 123/79 Pulse Oximetry 95 Oxygen Delivery 07/12/24 20:43 07/12/24 22:02 07/12/24 22:53 Temperature Pulse Rate 79 75 Pulse Rate [Right Radial] 76 Respiratory Rate Blood Pressure 128/76 118/63 Pulse Oximetry Oxygen Delivery 07/12/24 23:07 07/12/24 23:07 07/13/24 00:05 Temperature 36.6 C Pulse Rate 69 69 72 Pulse Rate [Right Radial] Respiratory Rate 16 18 Blood Pressure 128/63 Pulse Oximetry 95 96 Oxygen Delivery Room Air 07/13/24 03:31 07/13/24 03:32 07/13/24 03:51 Temperature 37.1 C Pulse Rate 75 75 73 Pulse Rate [Right Radial] Respiratory Rate 18 18 Blood Pressure 120/66 Pulse Oximetry 96 97 Oxygen Delivery Room Air 07/13/24 05:56 07/13/24 08:00 07/13/24 08:00 Temperature 36.8 C Pulse Rate 84 80 81 Pulse Rate [Right Radial] Respiratory Rate 16 Blood Pressure 104/65 Pulse Oximetry 96 Oxygen Delivery 07/13/24 08:00 07/13/24 10:22 Temperature Pulse Rate Pulse Rate [Right Radial] Respiratory Rate Blood Pressure Pulse Oximetry 96 97 Oxygen Delivery Room Air Room Air Intake/Output Intake/Output: Intake & Output 07/10/24 07/11/24 07/12/24 07/13/24 23:59 23:59 23:59 23:59 Intake Total 31.8 873.1 670 Output Total 400 600 Balance 31.8 473.1 70 Meds/Results Medications: Active Medications Generic Name Dose Route Start Last Admin Trade Name Freq PRN Reason Stop Dose Admin Acetaminophen 650 mg 07/11/24 18:42 Acetaminophen 650 Mg Suppository RECTAL Q6H PRN Mild Pain (1-3) or Fever Acetaminophen 650 mg 07/12/24 10:31 07/12/24 10:53 Acetaminophen 325 Mg Tablet PO 650 mg Q6H PRN Administration Mild Pain (1-3) or Fever Artificial Tears 1 drop 07/12/24 02:13 Artificial Tears Ophth Soln 15 Ml Bottle EACH EYE QID PRN Dry Eye(s) Artificial Tears 1 drop 07/13/24 09:54 Artificial Tears Ophth Soln 15 Ml Bottle EACH EYE QID PRN Dry Eye(s) Aspirin 81 mg 07/13/24 09:00 07/13/24 10:14 Aspirin 81 Mg Enteric Tablet PO 81 mg QAM [place] Administration Bupropion HCl 150 mg 07/13/24 10:10 07/13/24 10:13 Bupropion Hcl Sr (12 Hr) 150 Mg Tab PO 150 mg Q12HR [place] Administration Buspirone HCl 10 mg 07/13/24 10:15 07/13/24 10:21 Buspirone Hcl 10 Mg Tablet PO 10 mg TID [place] Administration Dextrose 12.5 gm 07/12/24 09:57 Dextrose 50% 25 Gm/50 Ml Syringe IV PUSH PRN PRN Hypoglycemia Protocol Glucagon 1 mg 07/12/24 09:57 Glucagon For Inj 1 Mg Vial IM PRN PRN Hypoglycemia Protocol Glucose 15 gm 07/12/24 09:57 Glucose Oral Gel 15 Gm Of Glucse In 37.5 Gm Tube PO PRN PRN Hypoglycemia Protocol Dextrose 1,000 mls @ 100 mls/hr 07/12/24 09:57 Dextrose 5% 1,000 Ml IVPB PRN PRN Hypoglycemia Protocol Insulin Aspart 3 - 6 units 07/12/24 12:00 07/13/24 08:53 Insulin Aspart (*Bkc) 100 Units/Ml SUB-Q Not Given Q6HR [facility] Protocol Ipratropium [place] 2 spray 07/13/24 09:40 Ipratropium Nasal [place] 0.03% 15 Ml Bottle NASAL TID PRN allergy symptoms Losartan Potassium 25 mg 07/13/24 09:00 07/13/24 10:14 Losartan Potassium 25 Mg Tablet PO 25 mg DAILY [place] Administration Losartan Potassium 100 mg 07/14/24 09:00 Losartan Potassium 100 Mg Tablet PO DAILY [place] Melatonin 5 mg 07/13/24 09:40 Melatonin 5 Mg Tablet PO HS PRN insomnia Meloxicam 15 mg 07/13/24 09:49 Meloxicam 7.5 Mg Tablet PO DAILY PRN arthritis Miscellaneous Information 0 each 07/13/24 00:01 Empagliflozin/Metformin (Synjardi Or Synjardi Xr) Please Clarify Which Product And What Ar XX 08/12/24 00:00 CLARIFY [place] Morphine Sulfate 2 mg 07/11/24 18:42 Morphine Sulfate (*Crx) 2 Mg/Ml Inj IV PUSH Q2H PRN Pain Rated 7-10 Nitroglycerin 0.4 mg 07/11/24 18:20 07/11/24 18:45 Nitroglycerin Sl 0.4 Mg Tablet SUBLINGUAL 0.4 mg Q5MIN PRN Administration Chest Pain Non-Formulary Medication 2 tablet 07/13/24 09:45 Empagliflozin-Metformin PO 08/12/24 09:44 ONCE [place] Perflutren Lipid Microsphere 0 ml 07/12/24 02:14 Perflutren Lipid Microspheres 1.5 Ml Vial Diluted To 10 Ml Total Volume IV PUSH 07/15/24 02:15 ONCE PRN adequate visualization Protocol Rosuvastatin Calcium 10 mg 07/12/24 09:35 07/13/24 10:14 Rosuvastatin 10 Mg Tablet PO 10 mg QAM [place] Administration Ticagrelor 90 mg 07/12/24 21:00 07/13/24 10:14 Ticagrelor 90 Mg Tablet PO 90 mg Q12HR [place] Administration Radiology Results: ITS Impressions Chest/Abdomen/Pelvis CTA 07/11/24 17:35 IMPRESSION: No aortic dissection. No pulmonary embolus. 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 Indeterminate 7 mm focus of decreased attenuation within the proximal body of the pancreas for which nonemergent follow-up either contrast-enhanced CT or MRI with pancreatic mass protocol is recommended, unless this is a known finding. 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 Remaining mesenteric vasculature is widely patent. Labs Labs: Laboratory Results - last 24 hr 07/12/24 07/12/24 07/12/24 12:06 17:42 20:22 POC Capillary Glucose 92 132 H 110 H 07/13/24 07:25 POC Capillary Glucose 104 Quality VTE Prophylaxis VTE prophylaxis: pharmacologic ordered (Heparin GGT)
[2024-07-13 11:59] LABS: Glucose Point of Care 103 mg/dl (65-105)
--- NOTE | 2024-07-13 13:56 | PCCPR ---
Spoke with Lyndon at bedside. He will dc today. Provided overview of the CPR program. He verbalized interest and denied questions. He has a prescheduled [facility] apt from an earlier Stress Test this month. Explained he would be eligible with his Medicare benefit option.
== END 2024-07-13 13:50 | disposition home or self-care (01) | DRG 322 ==
LOC: ANHED 18:00 → ANHIMU 19:37
PROVIDERS: Internal Medicine; Registered Nurse; Admitting Provider Internal Medicine; Emergency Provider Preventive Medicine Aerospace Medicine; Visit Provider Hospitalist
PROC: 4A023N7 Measurement of Cardiac Sampling and Pressure, Left Heart, Percutaneous Approach (ICD-10-PCS; CPT 93452; principal; 2024-07-12 13:30)
PROC: 4A033BC Measurement of Arterial Pressure, Coronary, Percutaneous Approach (ICD-10-PCS; CPT 93571; 2024-07-12 13:30)
PROC: 027034Z Dilation of Coronary Artery, One Artery with Drug-eluting Intraluminal Device, Percutaneous Approach (ICD-10-PCS; 2024-07-12 13:30)
PROC: 027034Z Dilation of Coronary Artery, One Artery with Drug-eluting Intraluminal Device, Percutaneous Approach (ICD-10-PCS; CPT 92928; 2024-07-12 13:30)
DX: I21.4 Non-ST elevation (NSTEMI) myocardial infarction (principal); I10 Essential (primary) hypertension; E11.9 Type 2 diabetes mellitus without complications; E78.2 Mixed hyperlipidemia; E78.00 Pure hypercholesterolemia, unspecified; K86.89 Other specified diseases of pancreas; G47.33 Obstructive sleep apnea (adult) (pediatric); Z20.822 Contact with and (suspected) exposure to COVID-19; Z98.1 Arthrodesis status
CPT/HCPCS: 36415; 71275; 74174; 80048; 80053; 80061; 82948; 83690; 84484; 85025; 85610; 85730; 87637; 92978; 93005; 93306; 93458; 93571; 96374; 96375; 96376; 99291; A9270; C1725; C1753; C1769; C1874; C1887; C1894; C9600; G0378; J0583; J1644; J2003; J2250; J2270; J2305; J3010; J7030; J7040; Q9967